=== PATIENT | male | born 1970 | race Caucasian/White ===

== ENCOUNTER 2021-05-25 15:06 | Inpatient (IN) | payer OTHER, BC, SELFPAY ==
[~2021-05-25] VITALS: Ht 170.2 cm; Wt 100.2 kg
[2021-05-25 15:13] VITALS: BP_SYST 137
[2021-05-25] MEDS ORDERED: IBUPROFEN 800 MG TABLET PO ONE (17:00)
[2021-05-25 18:38] LABS: CREATININE 0.7 mg/dL (0.55-1.30); POTASSIUM 3.9 mmol/L (3.5-5.1)
[2021-05-25 18:41] LABS: BASOPHILS % (AUTO) 0.4 % (0.0-2.0); EOSINOPHILS # (AUTO) 0.3 K/uL (0.0-0.4); EOSINOPHILS % (AUTO) 2.7 % (0.0-4.0); HEMATOCRIT 37.2 % (36-54); HEMOGLOBIN 11.9 g/dL (14.0-18.0); LYMPHOCYTES # (AUTO) 0.8 K/uL (1.0-5.5); LYMPHOCYTES % (AUTO) 6.5 % (20.5-51.5); MEAN CORPUSCULAR HEMOGLOBIN 26 pg (27-31); MEAN CORPUSCULAR HGB CONC 32 % (32-36); MEAN CORPUSCULAR VOLUME 81 fL (79.0-98.0); MONOCYTES # (AUTO) 1.1 K/uL (0.0-1.0); MONOCYTES % (AUTO) 8.4 % (1.7-9.3); NEUTROPHILS # (AUTO) 10.5 K/uL (1.8-7.7); PLATELET COUNT (AUTO) 426 K/uL (130-430); RED BLOOD CELL COUNT(AUTO) 4.62 MIL/uL (4.2-6.2); RED CELL DISTRIBUTION WIDTH 16.9 % (9.0-15.0); WHITE BLOOD COUNT (AUTO) 12.8 K/uL (4.8-10.8)
[2021-05-25 18:43] LABS: ALBUMIN 3.1 g/dL (3.4-4.8); TOTAL BILIRUBIN 0.4 mg/dL (0.0-1.0)
[2021-05-25] MEDS ORDERED: cefTRIAXone 1 GM IVPB PREMIX 50 ML IV ONE (19:15)
[2021-05-25] MEDS ORDERED: VANCOMYCIN HCL 1,000 MG in NS 250 ML IV ONE (19:15)
[2021-05-25 19:29] LABS: PROTHROMBIN TIME 10.9 SECS (9.5-12.5)
[2021-05-25] MEDS ORDERED: BACL10TA PO (19:34)
[2021-05-25] MEDS ORDERED: POTA20TA83 PO (19:34)
[2021-05-25] MEDS ORDERED: NEU300 PO (19:35)
[2021-05-25] MEDS ORDERED: HYDROcodone/ACETAMIN 5-325 MG TAB (NORCO/ VICODIN) PO PRN (20:15)
[2021-05-25] MEDS ORDERED: NACL 0.9% 1,000 ML IV ONE ×2 (20:15)
[2021-05-25 22:53] VITALS: BP_SYST 137
[2021-05-25 23:48] VITALS: BP_SYST 137
[2021-05-25] MEDS ORDERED: VANCOMYCIN HCL 1000 MG/VIAL IV ONE (23:57)
[2021-05-26] MEDS ORDERED: NALOXONE HCL 0.4 MG/ML AMP (NARCAN) IVP PRN
[2021-05-26] MEDS ORDERED: MORPHINE 2 MG/ML INJ. SYRINGE IVP PRN
[2021-05-26] MEDS ORDERED: ACETAMINOPHEN 500 MG TABLET PO PRN
[2021-05-26] MEDS ORDERED: IBUPROFEN 800 MG TABLET PO PRN
[2021-05-26 01:35] VITALS: BP_SYST 135
[2021-05-26 08:00] VITALS: BP_SYST 139
[2021-05-26 13:25] VITALS: BP_SYST 113
[2021-05-26] MEDS: VANCOMYCIN HCL 1,000 MG in NS 250 ML IV SCH ×2 (14:02→21:56)
[2021-05-26] MEDS ORDERED: BALSAM PERU/CASTOR OIL 60 GM OINT...G. TP ONE (14:30)
[2021-05-26] MEDS ORDERED: EMOLLIENT COMBINATION NO.73 78 GM CREAM..G. TP ONE (14:30)
[2021-05-26 16:21] VITALS: BP_SYST 135
[2021-05-26] MEDS: AMPICILLIN SODIUM 2 GM in NS 100 ML IV SCH (18:26)
[2021-05-26 20:05] VITALS: BP_SYST 155
[2021-05-26] MEDS: GABAPENTIN 300 MG CAPSULE PO SCH (20:41)
[2021-05-26] MEDS: BACLOFEN 10 MG TABLET PO SCH (20:42)
[2021-05-26] MEDS: ACETAMINOPHEN 500 MG TABLET PO PRN (20:42)
[2021-05-26] MEDS: EMOLLIENT COMBINATION NO.73 78 GM CREAM..G. TP SCH (20:42)
[2021-05-27] MEDS: AMPICILLIN SODIUM 2 GM in NS 100 ML IV SCH ×5 (00:19→23:54)
[2021-05-27 00:23] VITALS: BP_SYST 142
[2021-05-27] MEDS: VANCOMYCIN HCL 1,000 MG in NS 250 ML IV SCH ×3 (06:24→21:01)
[2021-05-27] MEDS: BACLOFEN 10 MG TABLET PO SCH ×2 (08:55→21:00)
[2021-05-27 09:56] VITALS: BP_SYST 133
[2021-05-27 09:57] VITALS: BP_SYST 133
[2021-05-27 10:30] LABS: BASOPHILS # (AUTO) 0.1 K/uL (0.0-0.2); BASOPHILS % (AUTO) 1.1 % (0.0-2.0); EOSINOPHILS # (AUTO) 0.6 K/uL (0.0-0.4); EOSINOPHILS % (AUTO) 6.5 % (0.0-4.0); HEMATOCRIT 34.7 % (36-54); LYMPHOCYTES # (AUTO) 1.2 K/uL (1.0-5.5); LYMPHOCYTES % (AUTO) 12.2 % (20.5-51.5); MEAN CORPUSCULAR HEMOGLOBIN 26 pg (27-31); MEAN CORPUSCULAR HGB CONC 32 % (32-36); MEAN CORPUSCULAR VOLUME 81 fL (79.0-98.0); MONOCYTES # (AUTO) 0.8 K/uL (0.0-1.0); MONOCYTES % (AUTO) 8.7 % (1.7-9.3); NEUTROPHILS # (AUTO) 6.8 K/uL (1.8-7.7); NEUTROPHILS % (AUTO) 71.5 % (40.0-70.0); PLATELET COUNT (AUTO) 435 K/uL (130-430); RED BLOOD CELL COUNT(AUTO) 4.31 MIL/uL (4.2-6.2); RED CELL DISTRIBUTION WIDTH 17.1 % (9.0-15.0); WHITE BLOOD COUNT (AUTO) 9.5 K/uL (4.8-10.8)
[2021-05-27 11:33] VITALS: BP_SYST 139
[2021-05-27] MEDS: BALSAM PERU/CASTOR OIL 60 GM OINT...G. TP SCH (14:33)
[2021-05-27] MEDS: EMOLLIENT COMBINATION NO.73 78 GM CREAM..G. TP SCH ×2 (14:33→21:01)
[2021-05-27] MEDS: ACETAMINOPHEN 500 MG TABLET PO PRN (19:36)
[2021-05-27 19:51] VITALS: BP_SYST 138
[2021-05-27] MEDS: GABAPENTIN 300 MG CAPSULE PO SCH (21:00)
[2021-05-28 01:12] VITALS: BP_SYST 125
[2021-05-28] MEDS: AMPICILLIN SODIUM 2 GM in NS 100 ML IV SCH ×3 (05:16→18:19)
[2021-05-28] MEDS: VANCOMYCIN HCL 1,000 MG in NS 250 ML IV SCH ×3 (06:29→22:08)
[2021-05-28 06:44] LABS: BASOPHILS % (AUTO) 0.5 % (0.0-2.0); EOSINOPHILS # (AUTO) 0.7 K/uL (0.0-0.4); EOSINOPHILS % (AUTO) 8.9 % (0.0-4.0); HEMOGLOBIN 11.3 g/dL (14.0-18.0); LYMPHOCYTES # (AUTO) 1.2 K/uL (1.0-5.5); LYMPHOCYTES % (AUTO) 15.1 % (20.5-51.5); MEAN CORPUSCULAR HEMOGLOBIN 25 pg (27-31); MEAN CORPUSCULAR HGB CONC 31 % (32-36); MEAN CORPUSCULAR VOLUME 81 fL (79.0-98.0); MONOCYTES # (AUTO) 0.7 K/uL (0.0-1.0); MONOCYTES % (AUTO) 9.4 % (1.7-9.3); NEUTROPHILS # (AUTO) 5.1 K/uL (1.8-7.7); NEUTROPHILS % (AUTO) 66.1 % (40.0-70.0); PLATELET COUNT (AUTO) 402 K/uL (130-430); RED BLOOD CELL COUNT(AUTO) 4.47 MIL/uL (4.2-6.2); RED CELL DISTRIBUTION WIDTH 16.8 % (9.0-15.0); WHITE BLOOD COUNT (AUTO) 7.6 K/uL (4.8-10.8)
[2021-05-28 08:00] VITALS: BP_SYST 140
[2021-05-28 09:54] VITALS: BP_SYST 125
[2021-05-28] MEDS ORDERED: TAMSULOSIN HCL 0.4 MG CAP PO ONE (10:15)
[2021-05-28] MEDS: EMOLLIENT COMBINATION NO.73 78 GM CREAM..G. TP SCH ×2 (10:27→22:09)
[2021-05-28] MEDS: BACLOFEN 10 MG TABLET PO SCH ×2 (10:27→20:19)
[2021-05-28] MEDS: BALSAM PERU/CASTOR OIL 60 GM OINT...G. TP SCH (10:28)
[2021-05-28] MEDS ORDERED: BACLOFEN 10 MG TABLET PO ONE (12:30)
[2021-05-28 12:34] VITALS: BP_SYST 146
[2021-05-28 16:48] VITALS: BP_SYST 141
[2021-05-28] MEDS: ACETAMINOPHEN 500 MG TABLET PO PRN (19:34)
[2021-05-28] MEDS: GABAPENTIN 300 MG CAPSULE PO SCH (20:19)
[2021-05-29] MEDS: AMPICILLIN SODIUM 2 GM in NS 100 ML IV SCH ×4 (00:28→17:56)
[2021-05-29 01:36] VITALS: BP_SYST 143
[2021-05-29] MEDS: VANCOMYCIN HCL 1,000 MG in NS 250 ML IV SCH ×3 (06:14→21:19)
[2021-05-29 08:15] VITALS: BP_SYST 125
[2021-05-29] MEDS: TAMSULOSIN HCL 0.4 MG CAP PO SCH (08:15)
[2021-05-29] MEDS: BACLOFEN 10 MG TABLET PO SCH ×2 (08:15→20:14)
[2021-05-29 12:31] VITALS: BP_SYST 126
[2021-05-29] MEDS: ACETAMINOPHEN 500 MG TABLET PO PRN ×2 (13:38→21:19)
[2021-05-29] MEDS: BALSAM PERU/CASTOR OIL 60 GM OINT...G. TP SCH (16:00)
[2021-05-29] MEDS: EMOLLIENT COMBINATION NO.73 78 GM CREAM..G. TP SCH ×2 (16:00→20:24)
[2021-05-29 16:45] VITALS: BP_SYST 136
[2021-05-29] MEDS ORDERED: MENTHOL/ZINC OXIDE 113 GM OINT. TP PRN (17:15)
[2021-05-29 19:00] VITALS: BP_SYST 135
[2021-05-29 20:00] VITALS: BP_SYST 160
[2021-05-29] MEDS: GABAPENTIN 300 MG CAPSULE PO SCH (20:14)
[2021-05-30] MEDS: AMPICILLIN SODIUM 2 GM in NS 100 ML IV SCH ×4 (01:10→17:51)
[2021-05-30] MEDS: VANCOMYCIN HCL 1,000 MG in NS 250 ML IV SCH ×3 (06:21→22:16)
[2021-05-30 07:45] VITALS: BP_SYST 131
[2021-05-30 07:56] LABS: ALANINE AMINOTRANSFERASE 17 U/L (12-78); ALBUMIN 2.2 g/dL (3.4-4.8); ANION GAP 7 (5-15); ASPARTATE AMINOTRANSFERASE 18 U/L (10-37); CHLORIDE 104 mmol/L (98-107); CREATININE 0.49 mg/dL (0.55-1.30); GLUCOSE 93 mg/dL (70-99); SODIUM SERUM 140 mmol/L (136-145); TOTAL BILIRUBIN < 0.1 mg/dL (0.0-1.0); UREA NITROGEN, BLOOD 10 mg/dL (8-21)
[2021-05-30 08:12] LABS: GFR AFRICAN AMERICAN 230 mL/min (>90)
[2021-05-30] MEDS: TAMSULOSIN HCL 0.4 MG CAP PO SCH (09:52)
[2021-05-30] MEDS: EMOLLIENT COMBINATION NO.73 78 GM CREAM..G. TP SCH ×2 (09:53→20:38)
[2021-05-30] MEDS: BACLOFEN 10 MG TABLET PO SCH ×2 (09:53→20:38)
[2021-05-30] MEDS: ACETAMINOPHEN 500 MG TABLET PO PRN (12:03)
[2021-05-30 13:00] VITALS: BP_SYST 142
[2021-05-30] MEDS: BALSAM PERU/CASTOR OIL 60 GM OINT...G. TP SCH (15:24)
[2021-05-30 16:37] VITALS: BP_SYST 135
[2021-05-30] MEDS: GABAPENTIN 300 MG CAPSULE PO SCH (20:37)
[2021-05-30] MEDS: tiZANidine HCL 4 MG TABLET PO SCH (20:37)
[2021-05-30 21:00] VITALS: BP_SYST 137
[2021-05-31 02:00] VITALS: BP_SYST 142
[2021-05-31] MEDS: AMPICILLIN SODIUM 2 GM in NS 100 ML IV SCH ×4 (02:42→18:06)
[2021-05-31] MEDS: VANCOMYCIN HCL 1,000 MG in NS 250 ML IV SCH ×3 (05:09→22:25)
[2021-05-31 08:00] VITALS: BP_SYST 132
[2021-05-31] MEDS: EMOLLIENT COMBINATION NO.73 78 GM CREAM..G. TP SCH ×2 (09:53→21:17)
[2021-05-31] MEDS: BACLOFEN 10 MG TABLET PO SCH ×2 (09:53→21:05)
[2021-05-31] MEDS: tiZANidine HCL 4 MG TABLET PO SCH ×3 (09:53→21:15)
[2021-05-31] MEDS: TAMSULOSIN HCL 0.4 MG CAP PO SCH (09:53)
[2021-05-31] MEDS: BALSAM PERU/CASTOR OIL 60 GM OINT...G. TP SCH (09:54)
[2021-05-31 12:00] VITALS: BP_SYST 116
[2021-05-31 16:00] VITALS: BP_SYST 132
[2021-05-31 20:39] VITALS: BP_SYST 106
[2021-05-31] MEDS: GABAPENTIN 300 MG CAPSULE PO SCH (21:05)
[2021-06-01 00:07] VITALS: BP_SYST 91
[2021-06-01] MEDS: AMPICILLIN SODIUM 2 GM in NS 100 ML IV SCH ×2 (03:04→05:48)
[2021-06-01] MEDS: VANCOMYCIN HCL 1,000 MG in NS 250 ML IV SCH (05:40)
[2021-06-01 05:48] VITALS: BP_SYST 119
[2021-06-01] MEDS: tiZANidine HCL 4 MG TABLET PO SCH ×3 (09:11→21:44)
[2021-06-01] MEDS: EMOLLIENT COMBINATION NO.73 78 GM CREAM..G. TP SCH (09:11)
[2021-06-01] MEDS: BACLOFEN 10 MG TABLET PO SCH ×2 (09:11→21:35)
[2021-06-01] MEDS: TAMSULOSIN HCL 0.4 MG CAP PO SCH (09:11)
[2021-06-01] MEDS: BALSAM PERU/CASTOR OIL 60 GM OINT...G. TP SCH (09:11)
[2021-06-01 11:40] VITALS: BP_SYST 129
[2021-06-01 15:11] VITALS: BP_SYST 135
[2021-06-01] MEDS: ACETAMINOPHEN 500 MG TABLET PO PRN (15:11)
[2021-06-01] MEDS: GABAPENTIN 300 MG CAPSULE PO SCH (21:35)
[2021-06-01] MEDS: DOXYCYCLINE HYCLATE 100 MG CAPSULE PO SCH (21:35)
[2021-06-02 00:43] VITALS: BP_SYST 94
[2021-06-02 08:00] VITALS: BP_SYST 126
[2021-06-02] MEDS: TAMSULOSIN HCL 0.4 MG CAP PO SCH (09:12)
[2021-06-02] MEDS: DOXYCYCLINE HYCLATE 100 MG CAPSULE PO SCH ×2 (09:12→21:32)
[2021-06-02] MEDS: EMOLLIENT COMBINATION NO.73 78 GM CREAM..G. TP SCH (09:13)
[2021-06-02] MEDS: tiZANidine HCL 4 MG TABLET PO SCH ×3 (09:13→21:32)
[2021-06-02] MEDS: BALSAM PERU/CASTOR OIL 60 GM OINT...G. TP SCH (09:13)
[2021-06-02] MEDS: BACLOFEN 10 MG TABLET PO SCH ×2 (09:14→21:32)
[2021-06-02 11:22] VITALS: BP_SYST 133
[2021-06-02 15:21] VITALS: BP_SYST 112
[2021-06-02] MEDS: GABAPENTIN 300 MG CAPSULE PO SCH (21:32)
[2021-06-03 01:23] VITALS: BP_SYST 102
[2021-06-03 08:22] VITALS: BP_SYST 102
[2021-06-03] MEDS: DOXYCYCLINE HYCLATE 100 MG CAPSULE PO SCH (09:00)
[2021-06-03] MEDS: BACLOFEN 10 MG TABLET PO SCH (09:00)
[2021-06-03] MEDS: BALSAM PERU/CASTOR OIL 60 GM OINT...G. TP SCH (09:00)
[2021-06-03] MEDS: TAMSULOSIN HCL 0.4 MG CAP PO SCH (09:00)
[2021-06-03] MEDS: tiZANidine HCL 4 MG TABLET PO SCH (09:00)
[2021-06-03 10:04] LABS: BASOPHILS % (AUTO) 0.4 % (0.0-2.0); EOSINOPHILS # (AUTO) 0.5 K/uL (0.0-0.4); EOSINOPHILS % (AUTO) 5.8 % (0.0-4.0); HEMATOCRIT 34.3 % (36-54); HEMOGLOBIN 11.1 g/dL (14.0-18.0); LYMPHOCYTES % (AUTO) 10.8 % (20.5-51.5); MEAN CORPUSCULAR HEMOGLOBIN 26 pg (27-31); MEAN CORPUSCULAR HGB CONC 32 % (32-36); MEAN CORPUSCULAR VOLUME 80 fL (79.0-98.0); MONOCYTES # (AUTO) 0.9 K/uL (0.0-1.0); MONOCYTES % (AUTO) 10.2 % (1.7-9.3); NEUTROPHILS # (AUTO) 6.6 K/uL (1.8-7.7); NEUTROPHILS % (AUTO) 72.8 % (40.0-70.0); PLATELET COUNT (AUTO) 411 K/uL (130-430); RED CELL DISTRIBUTION WIDTH 17.6 % (9.0-15.0)
[2021-06-03 10:21] LABS: ALBUMIN 2.5 g/dL (3.4-4.8); CALCIUM 8.6 mg/dL (8.4-11.0); CREATININE 0.57 mg/dL (0.55-1.30); TOTAL BILIRUBIN 0.3 mg/dL (0.0-1.0)
[2021-06-03 11:25] VITALS: BP_SYST 112
[2021-06-03 15:09] VITALS: BP_SYST 117
[2021-06-03 15:40] VITALS: BP_SYST 112
== END 2021-06-03 17:20 | DRG 603 ==
LOC: SED 15:06 → SMU 20:07
PROVIDERS: ADMIT Internal Medicine Hospice and Palliative Medicine; ATTEND Internal Medicine Hospice and Palliative Medicine
PROC: 5A09457 Assistance with Respiratory Ventilation, 24-96 Consecutive Hours, Continuous Positive Airway Pressure (ICD-10-PCS; principal; 2021-05-29)
DX: L03.116 Cellulitis of left lower limb (principal); E44.0 Moderate protein-calorie malnutrition; G61.0 Guillain-Barre syndrome; N20.2 Calculus of kidney with calculus of ureter; E66.9 Obesity, unspecified; G47.33 Obstructive sleep apnea (adult) (pediatric); I10 Essential (primary) hypertension; I87.2 Venous insufficiency (chronic) (peripheral); Z20.822 Contact with and (suspected) exposure to COVID-19; Z96.642 Presence of left artificial hip joint; R33.9 Retention of urine, unspecified; G56.02 Carpal tunnel syndrome, left upper limb; M62.838 Other muscle spasm; I89.0 Lymphedema, not elsewhere classified; M54.50 Low back pain, unspecified; G89.29 Other chronic pain; Z99.3 Dependence on wheelchair; Z88.8 Allergy status to other drugs, medicaments and biological substances; Z88.7 Allergy status to serum and vaccine; Z79.899 Other long term (current) drug therapy; Z68.34 Body mass index [BMI] 34.0-34.9, adult
CPT/HCPCS: 36415; 72110; 73502; 76376; 80053; 80202; 82607; 83605; 84443; 85025; 85610-TC; 85651-TC; 87040-TC; 93923; 94660; 94760; 96365; 97110-GP; 97112-GP; 97530-GP; 99285; J0290; J0696; J3370; J7050; Q9967

== ENCOUNTER 2022-07-09 22:01 | Inpatient (IN) | payer BC, OTHER ==
[~2022-07-09] VITALS: Ht 170.2 cm; Wt 114.8 kg
[2022-07-09 22:12] VITALS: BP_SYST 179
[2022-07-09] MEDS ORDERED: NACL 0.9% 1,000 ML IV ONE (23:45)
[2022-07-10 00:36] LABS: CALCIUM 9.4 mg/dL (8.4-11.0); CREATININE 0.49 mg/dL (0.55-1.30)
[2022-07-10 00:42] LABS: ALBUMIN 2.8 g/dL (3.4-4.8); PHOSPHORUS 3.9 mg/dL (2.7-4.5); TOTAL BILIRUBIN 0.3 mg/dL (0.0-1.0)
[2022-07-10] MEDS ORDERED: GABAPENTIN 100 MG CAPSULE PO ONE (01:00)
[2022-07-10] MEDS ORDERED: ACETAMINOPHEN 500 MG TABLET PO ONE (01:00)
[2022-07-10] MEDS ORDERED: BACLOFEN 10 MG TABLET PO ONE ×2 (01:00→10:00)
[2022-07-10] MEDS ORDERED: BACLOFEN 10 MG TABLET ONE (01:26)
[2022-07-10 01:38] LABS: BASOPHILS # (AUTO) 0.1 K/uL (0.0-0.2); BASOPHILS % (AUTO) 0.3 % (0.0-2.0); EOSINOPHILS # (AUTO) 0.4 K/uL (0.0-0.4); EOSINOPHILS % (AUTO) 2.5 % (0.0-4.0); HEMATOCRIT 36.3 % (36-54); HEMOGLOBIN 11.1 g/dL (14.0-18.0); LYMPHOCYTES # (AUTO) 1.3 K/uL (1.0-5.5); LYMPHOCYTES % (AUTO) 7.9 % (20.5-51.5); MEAN CORPUSCULAR HEMOGLOBIN 25 pg (27-31); MEAN CORPUSCULAR HGB CONC 31 % (32-36); MEAN CORPUSCULAR VOLUME 82 fL (79.0-98.0); MONOCYTES # (AUTO) 1.5 K/uL (0.0-1.0); MONOCYTES % (AUTO) 9.6 % (1.7-9.3); NEUTROPHILS # (AUTO) 12.6 K/uL (1.8-7.7); NEUTROPHILS % (AUTO) 79.7 % (40.0-70.0); PLATELET COUNT (AUTO) 424 K/uL (130-430); RED BLOOD CELL COUNT(AUTO) 4.42 MIL/uL (4.2-6.2); RED CELL DISTRIBUTION WIDTH 18.5 % (9.0-15.0); WHITE BLOOD COUNT (AUTO) 15.8 K/uL (4.8-10.8)
[2022-07-10 03:05] LABS: BILIRUBIN,URINE NEGATIVE (NEGATIVE); BLOOD, URINE 3+ (NEGATIVE); CLARITY/URINE CLEAR (CLEAR); COLOR,URINE YELLOW (YELLOW); GLUCOSE,URINE NEGATIVE (NEGATIVE); KETONES,URINE NEGATIVE (NEGATIVE); LEUKOCYTE ESTERASE ,URINE 2+ (NEGATIVE); NITRITE, URINE POSITIVE (NEGATIVE); PROTEIN URINE 1+ (NEGATIVE)
[2022-07-10 03:20] LABS: BACTERIA,URINE MODERATE /HPF (None Seen); MUCUS,URINE 2+ /LPF (None Seen); RBC,URINE 80-100 /HPF (0-3); WBC,URINE >100 /HPF (0-3)
[2022-07-10] MEDS ORDERED: cefTRIAXone 1 GM in D5W 50 ML IV ONE (03:30)
--- NOTE | 2022-07-10 04:05 | NUR ---
Per Dr. Rosa's request, called the on-call for admission orders.
[2022-07-10] MEDS ORDERED: NACL 0.9% 1,000 ML IV SCH (04:30)
[2022-07-10] MEDS ORDERED: cefTRIAXone 1 GM IVPB PREMIX 50 ML IV ONE (05:17)
--- NOTE | 2022-07-10 07:45 | NUR ---
Recieved report from ARCELIA Mojica. Pt aaox4, 24 gauge left hand positional to flow. No infilltration noted. bilateral edamateous lower extremities with pink and dry flaky skin. Pt lower extremities sensitive to touch, pt states pain radiates bilateral calves to lower back pain 6/10. Cason bag at bedside with louann colored urine 300ml with 16 indian indwelling cathetar. Pt notes suffers from scoliosis with general weakness. Respiratory therapist notes pt tolerated Bipap well. pt nasal canula oxygen 2 liters via nasal canula.
--- NOTE | 2022-07-10 08:08 | NUR ---
rt notes 0808 Offloaded pt from bipap, pt on 2LNC right now. pt saturating 95%. no resp distress noted. will cont to monitor pt. will notify RN.
[2022-07-10 08:51] VITALS: BP_SYST 135
--- NOTE | 2022-07-10 09:06 | NUR ---
Pt served regular diet per MD order. Pt complains of lower back pain radiating from bilateral extremities. RN Students assist with dangling and stretching a repositioned pt to bed side with assist. Pt states relief from repositioning.
[2022-07-10] MEDS ORDERED: ACETAMINOPHEN 500 MG TABLET ONE (09:58)
--- NOTE | 2022-07-10 11:00 | NUR ---
Pt saturation 88% on 2 liters via nasal canula.
--- NOTE | 2022-07-10 11:01 | NUR ---
Respiratory therapist contacted to assess pt; bipap therapy provided by RT Guy
--- NOTE | 2022-07-10 11:21 | NUR ---
Pt medicated per MD order to relieve back pain; further, pt transferred to hospital bed for comfort measure relief.
[2022-07-10] MEDS: ACETAMINOPHEN 500 MG TABLET PO PRN ×2 (11:37→22:00)
--- NOTE | 2022-07-10 14:04 | NUR ---
rt notes 1404 pt placed on bipap back due to desaturation episodes. pt saturating 98% on bipap. will cont to monitor pt.
--- NOTE | 2022-07-10 18:26 | NUR ---
rt notes 1826 offloaded pt from bipap, pt on 5LNC- pt saturating 97%. pt requested to be off of bipap. will cont to monitor pt.
[2022-07-10] MEDS ORDERED: PIPERACILLIN/TAZO 3.375/DEX-IS 50 ML IV SCH (19:00)
--- NOTE | 2022-07-10 20:38 | NUR ---
Pt is bedside with pt. pt is aaox4, on bipap, denies pain at this time.
--- NOTE | 2022-07-10 21:00 | NUR ---
Patient will be admitted to care of MD Zavaleta. Admitted to Tele unit. Complete and up to date summary report printed. SBAR report given to ARCELIA Dunham bedside with opportunity for questions.
[2022-07-10] MEDS: BACLOFEN 10 MG TABLET PO SCH (21:55)
--- NOTE | 2022-07-10 22:38 | NUR ---
Admit bed requested Patient will be admitted to care of . Admitted to tele unit. Diagnosis UTI with complications Inpatient (Yes or No) yes Observation (Yes or No) n Orientation concerns or request close to nursing station (Yes or No) n Covid Status neg On vent or bipap yes- pt on bipap Isolation requirements no Needs a sitter no From Home (Yes or if No enter name of facility) home Requires Dialysis (Yes or No) no Med Rec Completed (Yes of No) yes
[2022-07-10] MEDS ORDERED: ACETAMINOPHEN 500 MG TABLET PO PRN (22:45)
--- NOTE | 2022-07-10 22:45 | NUR ---
Patient will be admitted to care of [facility]. Admitted to tele unit. Complete and up to date summary report printed. SBAR report given to Roly PANIAGUA at bedside with opportunity for questions.
[2022-07-10] MEDS: NACL 0.9% 1,000 ML IV SCH (23:35)
[2022-07-11] VITALS: BP_SYST 140
--- NOTE | 2022-07-11 02:46 | NUR ---
CONSULTATION PAGED/CALLED Reason for Consultation: RESP FAILURE HISTORY Person Who was Notified:SHELDON Consulting Physician: JAMAAL Security Delivery Specialist Specialty: Ordering Physician: LANA
[2022-07-11 03:22] VITALS: BP_SYST 144
--- NOTE | 2022-07-11 06:49 | NUR ---
rt notes 0649 offloaded pt from bipap, pt on 4LNC right now. Pt saturating 95%. no distress noted. will cont to monitor pt.
--- NOTE | 2022-07-11 07:30 | NUR ---
OPENING NOTE Received report from ARCELIA Mi. Upon entering room, patient is awake, alert, and oriented in a sitting position in bed. He reports back pain at this time 12/04. IV site intact. Cason intact. Patient is on 5L NC at this time. Respirations appear labored at this time.
[2022-07-11 08:25] VITALS: BP_SYST 145
[2022-07-11] MEDS ORDERED: BACLOFEN 10 MG TABLET PO SCH ×2 (09:00→21:00)
[2022-07-11] MEDS: BACLOFEN 10 MG TABLET PO SCH ×3 (09:03→22:09)
[2022-07-11] MEDS: ACETAMINOPHEN 500 MG TABLET PO PRN (09:04)
--- NOTE | 2022-07-11 09:15 | NUR ---
TYLENOL GIVEN Patient denies acetaminophen allergy. This was also corroborated by rn night RN Shmuel. Acetaminophen removed from allergy list.
--- NOTE | 2022-07-11 09:17 | NUR ---
HYDROCODONE ALLERGY Patient states respiratory failure when hydrocodone given. However, patient states no reaction when taking acetaminophen only.
--- NOTE | 2022-07-11 09:30 | NUR ---
rt notes 0930 placed pt back on bipap, pt requested to be back on bipap due to sob and pt falling asleep (cirilo). pt saturating 96%. no distress noted. notified pipe and boiler covers supervisor Zeny.
--- NOTE | 2022-07-11 11:00 | NUR ---
FAMILY AT BEDSIDE at bedside at this time. She is very concerned about patient's conditions. She would like to speak to MD when available.
[2022-07-11 11:31] VITALS: BP_SYST 137
--- NOTE | 2022-07-11 11:51 | NUR ---
MD ROUNDS Dr. Bueno at bedside. Speaking to Denisa and patient.
--- NOTE | 2022-07-11 12:17 | NUR ---
RT NOTES 1217 PT OFF BIPAP, MD QURESHI ORDERED ABG ON RA ON PT. WILL DRAW ABG IN 15-30 MINS ON RA. EXPLAINED PROCEDURE TO PT AND . WILL CONT TO MONITOR PT. ARCELIA RIGGINS MADE AWARE.
--- NOTE | 2022-07-11 13:04 | NUR ---
rt notes 1304 Pt back on bipap after ABG draw. pt having WOB, saturating low 70s. will cont to monitor pt.
[2022-07-11] MEDS: traMADol HCL HCL 50 MG TABLET (ULTRAM) PO PRN ×2 (13:11→22:09)
[2022-07-11] MEDS: PIPERACILLIN/TAZO 3.375/DEX-IS 50 ML IV SCH ×3 (13:29→23:22)
[2022-07-11] MEDS: NACL 0.9% 1,000 ML IV SCH ×2 (13:29→18:45)
[2022-07-11 16:22] VITALS: BP_SYST 139
--- NOTE | 2022-07-11 18:55 | NUR ---
CLOSING NOTE Patient in bed sleeping at this time. O2 per bipap ongoing. No s/s of pain at this time. Patient checked for cleanliness. Call light within reach. Safety precautions observed.
[2022-07-11 20:00] VITALS: BP_SYST 156
[2022-07-12] VITALS (15 sets, daily range): BP systolic 94–153
[2022-07-12] MEDS: NACL 0.9% 1,000 ML IV SCH ×2 (05:22→11:41)
[2022-07-12] MEDS: PIPERACILLIN/TAZO 3.375/DEX-IS 50 ML IV SCH ×3 (05:30→23:44)
--- NOTE | 2022-07-12 07:30 | NUR ---
RN OPENING NOTE REPORT WAS ENDORSED BY NIGHT NURSE. RT IS AT BEDSIDE. REMOVED BIPAP AND PLACE ON NC 5L SPO2 IS 97%. PATIENT IS BEING FED BREAKFAST. EDUCATED CARGO SERVICE SUPERVISOR LIGHT FOR ASSISTANCE. CALL LIGHT IS WITH HIM. NO OTHER NEEDS AT THIS TIME.
[2022-07-12 07:33] LABS: BASOPHILS % (AUTO) 0.3 % (0.0-2.0); EOSINOPHILS # (AUTO) 0.2 K/uL (0.0-0.4); EOSINOPHILS % (AUTO) 1.8 % (0.0-4.0); HEMATOCRIT 33.3 % (36-54); HEMOGLOBIN 10.3 g/dL (14.0-18.0); LYMPHOCYTES # (AUTO) 0.9 K/uL (1.0-5.5); LYMPHOCYTES % (AUTO) 7.8 % (20.5-51.5); MEAN CORPUSCULAR HEMOGLOBIN 26 pg (27-31); MEAN CORPUSCULAR HGB CONC 31 % (32-36); MEAN CORPUSCULAR VOLUME 83 fL (79.0-98.0); MONOCYTES # (AUTO) 0.9 K/uL (0.0-1.0); MONOCYTES % (AUTO) 7.3 % (1.7-9.3); NEUTROPHILS # (AUTO) 9.8 K/uL (1.8-7.7); NEUTROPHILS % (AUTO) 82.8 % (40.0-70.0); PLATELET COUNT (AUTO) 387 K/uL (130-430); RED BLOOD CELL COUNT(AUTO) 4.01 MIL/uL (4.2-6.2); RED CELL DISTRIBUTION WIDTH 18.2 % (9.0-15.0); WHITE BLOOD COUNT (AUTO) 11.8 K/uL (4.8-10.8)
--- NOTE | 2022-07-12 07:45 | NUR ---
RT NOTE: 0745 Patient taken off BiPAP for breakfast, placed on 4LPM nasal cannula. SpO2 96-98%. BiPAP on standby. Addendum: 07/12/22 at 0755 by Ludy Blanca RT Amended: Links added.
[2022-07-12 07:55] LABS: CALCIUM 8.9 mg/dL (8.4-11.0); CREATININE 0.32 mg/dL (0.55-1.30)
[2022-07-12] MEDS: BACLOFEN 10 MG TABLET PO SCH ×2 (09:01→15:00)
[2022-07-12] MEDS: traMADol HCL HCL 50 MG TABLET (ULTRAM) PO PRN (09:02)
--- NOTE | 2022-07-12 09:06 | NUR ---
MEDICATION/PAIN MEDICATION PATIENTS SCHEDULED MEDICATION GIVEN WELL PAIN MEDICATION PATIENT REQUESTED.PATIENT KEEPS REMOVING OXYGEN EDUCATED TO KEEP ON AND BREATH THROUGH HIS NOSE PATIENT VERBALIZED UNDER STANDING. PATIENT ALSO EDUCATED CHEMIST BIOLOGICAL LIGHT FOR ASSISTANCE.CALL LIGHT IS WITH HIM.
[2022-07-12] MEDS ORDERED: MELOXICAM 7.5 MG TABLET PO ONE (11:30)
--- NOTE | 2022-07-12 11:43 | NUR ---
at nurses station orders were obtained.patient is yelling a cursing.i asked where his pain is seems confused.says he knows his name and but wont verbally tell me. patients medication given as ordered. educated die cutter diamond light for assistance call light is with him
[2022-07-12] MEDS ORDERED: KETOROLAC TROMETHAMINE 30 MG VIAL IVP ONE (11:45)
--- NOTE | 2022-07-12 13:15 | NUR ---
per put back on bi pap patient's spouse is at bedside.educated to use call light for assistance .patient also gave schedule medication. no other needs at this time. Addendum: 07/12/22 at 1741 by Zita Lee RN SUGGESTED ABG PER REQUEST MD DOES NOT WANT ONE AT THIS TIME. PATIENT IS NOT ABLE TO RECOGNIZE AND STATES HE WAS NOT LIKE THIS YESTERDAY
--- NOTE | 2022-07-12 14:00 | NUR ---
WOUND EVALUATION: Wound Consult received from Dr. Bueno. Thank you, Dr. Bueno, for the consult. Patient received in a [place] Bed with an Atmos-Air 9000 mattress, awake, lethargic, on BiPAP. Patient is unable to turn in bed independently. Contreras Score is a 13. Past Medical History: Limited Lung Capacity, bedridden, ambulates minimally with walker (mostly in a wheelchair), recent vertebral surgery done, incapacitated, incontinent to urine and has a Cason catheter, Spinal surgery with spinal tamie to stabilize Scoliosis. Recent Labs: WBC 11.8, RBC 4.01, hemoglobin 10.3, hematocrit 33.3, BUN 10, creatinine 0.32, glucose 115, BNP 105, albumin 2.8. Microbiology: Blood culture results x2 in progress. Urine culture results negative (possible contamination). Second urine culture results in progress. Intrinsic factors that delay wound healing: Limited Lung Capacity, Hyperglycemia, Hypoalbuminemia. Extrinsic factors that delay wound healing: Decreased mobility, bedbound. Per assessment by Dr. Bueno: UTI, Sacral Ulcer infection, Lower Extremity Cellulitis, Limited Lung Capacity needing BiPAP intermittently. Wound Assessment: 1. Sacral-Coccygeal area: Stage IV pressure ulcer, present on admission. Wound bed has 95% yellow slough, 5% red tissue. No odor, scant red drainage. Rita-wound white. Hard feel present at bottom of wound. Undermining present from 84 o'clock (0.5 cm at 9 o'clock; 1.3 cm at 12 o'clock; 1.2 cm at 3 o'clock;). Wound measures 2.0 cm x 2.0 cm x 3.7 cm. Left buttock has circular red nonblanchable area, present admission (we will continue to monitor). Recommend: Cleanse wound with normal saline. Apply moisture barrier cream to rita-wound. Apply Venelex ointment to wound bed. Pack wound with 1/2 inch iodoform packing strip. Cover with Sacral foam dressing. Perform wound care daily, and as needed for dressing soiling or dislodgement. 2. Left Inguinal area: Intertrigo with erythema from IAD, present on admission. 3. Right Inguinal area: Intertrigo with erythema from IAD, present on admission. 4. Scrotum: Erythema from IAD, present on admission Recommend: Cleanse involved areas with mild soap and water. Gently pat dry. Place Interdry AG cloth underneath scrotum apply antifungal powder to bilateral inguinal areas and scrotal area. Dust off excess powder. Pull scrotum up off of bed by pulling Interdry Ag cloth in between bilateral thighs. Perform site care twice daily. Change Interdry cloth every 5 days and as needed for cloth soiling or dislodgment. 5. Abdominal fold: Intertrigo with erythema from IAD, present on admission. Recommend: Cleanse involved areas with mild soap and water. Pat dry. Apply antifungal powder to involved areas. Dust off excess powder. Place Interdry AG cloth in between abdominal fold area. Perform site care twice daily. Change Interdry cloth every 5 days and as needed for cloth soiling or dislodgment. 6. Left Lower Extremity: Mild erythema with dry scaly skin, present on admission. 7. Right Lower Extremity: Moderate erythema with dry scaly skin, present on admission. Skin is warm to the touch. Recommend: Cleanse bilateral lower extremities with mild soap and water. Gently pat dry. Apply Eucerin cream to bilateral lower extremities. Perform site care twice daily. Cut calcium alginate dressings to size and place in between toes. Replace alginate dressing every 5 days and as needed for dressing soiling or dislodgment. Also recommend: Reposition patient side to side only every 2 hours with pillow support and off-load pressure areas with pillows for pressure re-distribution. Offload, elevate and float bilateral heels with pillows. Perform skin care and monitor skin integrity Q shift. Use moisture barrier cream on buttocks and other moisture susceptible areas QID and as needed for soiling. Place patient on a P500 low air-loss mattress.
--- NOTE | 2022-07-12 16:13 | NUR ---
patient is unable to swallow at this time. Addendum: 07/12/22 at 1742 by Zita Lee RN DR. QUERSHI AT [employer] [facility] WENT INTO TO SEE PATIENT ORDERS GIVEN AND IMPUTED
[2022-07-12] MEDS ORDERED: acetaZOLAMIDE 250 MG TABLET (DIAMOX) PO ONE (17:00)
--- NOTE | 2022-07-12 17:05 | NUR ---
spoke with dr. burt wants to transfer to icu for intubation. Addendum: 07/12/22 at 1956 by Zita Lee RN informed of abg results. also informed dr. boregon of abg results at nurses [facility].
[2022-07-12] MEDS ORDERED: PROPOFOL DRIP 100 ML IV ONE (17:11)
--- NOTE | 2022-07-12 17:24 | NUR ---
PATIENT TRANSFERRED TO ICU REPORT WAS ENDORSED TO RN. PATIENTS SPOUSE IS AWARE IN ICU WAITING ROOM. PATIENTS FAMILY HAS ALL OF THE BELONGINGS
--- NOTE | 2022-07-12 17:35 | NUR ---
RT NOTES ASSISTED DR FIGUEREDO WITH INTUBATION. 7.5 ETT INSERTED AND SECURED AT 24CM LIP LINE. COLOR CHANGE DETECTED ON CO2 DETECTOR. GOOD EQUAL BILATERAL CHEST RISE AND B/S AUSCULTATED. SPUTUM COLLECTED. CXRAY TO BE OBTAINED. ABG TO BE DONE POST 1 HR OF INTUBATION. PLACED ON VENT AC 20 VT 500 PEEP 5 FIO2 100% Addendum: 07/12/22 at 1805 by Braxton Smith RT Amended: Links added.
[2022-07-12] MEDS: PROPOFOL DRIP 100 ML IV PRN ×2 (18:25→21:39)
[2022-07-12] MEDS: FENTANYL CITRATE-0.9 % NACL/PF 100 ML IV PRN (18:27)
--- NOTE | 2022-07-12 18:30 | NUR ---
FEEDING TUBE SAUNDRA GREEN INSERTED ORALLY, CHECK PLACEMENT VIA AUSCULTATION, WAITING FOR STACKER ATTENDANT.
--- NOTE | 2022-07-12 18:43 | NUR ---
XRAY CHEST XRAY COMPLETED.
--- NOTE | 2022-07-12 18:50 | NUR ---
FAMILY SENT JAMAL INTO THE PT'S ROOM. UPDATED HER ON HIS STATUS.
[2022-07-12] MEDS: LANOLIN ALCOHOL/MO/W.PET/CERES 57 GM CREAM..G. TP SCH (21:40)
[2022-07-12] MEDS: APIXABAN 2.5 MG TABLET PO SCH (21:41)
[2022-07-12] MEDS: acetaZOLAMIDE 250 MG TABLET (DIAMOX) PO SCH (21:42)
[2022-07-12] MEDS: NYSTATIN 15 GM TOPICAL POWDER TP SCH (21:44)
[2022-07-12] MEDS ORDERED: PIPERACILLIN/TAZOBACTAM 3.375 GM/VIAL (ZOSYN) IV ONE (23:00)
[2022-07-13] VITALS (33 sets, daily range): BP systolic 100–135
--- NOTE | 2022-07-13 | NUR ---
RN NOTES VITALS STABLE, ON SAME VENT SETTING. PATIENT MADE COMFORTABLE.
[2022-07-13] MEDS: PROPOFOL DRIP 100 ML IV PRN ×3 (01:27→18:20)
[2022-07-13 06:13] LABS: BASOPHILS # (AUTO) 0.1 K/uL (0.0-0.2); BASOPHILS % (AUTO) 0.4 % (0.0-2.0); EOSINOPHILS # (AUTO) 0.3 K/uL (0.0-0.4); EOSINOPHILS % (AUTO) 2.2 % (0.0-4.0); HEMATOCRIT 33.4 % (36-54); HEMOGLOBIN 10.5 g/dL (14.0-18.0); LYMPHOCYTES % (AUTO) 13.2 % (20.5-51.5); MEAN CORPUSCULAR HEMOGLOBIN 25 pg (27-31); MEAN CORPUSCULAR HGB CONC 31 % (32-36); MEAN CORPUSCULAR VOLUME 81 fL (79.0-98.0); MONOCYTES # (AUTO) 1.1 K/uL (0.0-1.0); MONOCYTES % (AUTO) 7.2 % (1.7-9.3); NEUTROPHILS # (AUTO) 11.7 K/uL (1.8-7.7); PLATELET COUNT (AUTO) 454 K/uL (130-430); RED BLOOD CELL COUNT(AUTO) 4.11 MIL/uL (4.2-6.2); WHITE BLOOD COUNT (AUTO) 15.1 K/uL (4.8-10.8)
[2022-07-13] MEDS: PIPERACILLIN/TAZO 3.375/DEX-IS 50 ML IV SCH ×3 (06:13→18:13)
--- NOTE | 2022-07-13 07:00 | NUR ---
Open notes: received report from the night court magistrate Brea PANIAGUA. 52-year-old man, history of transverse myelitis who is bedbound/wheelchair. Recurrent UTI indwelling Cason catheter who was brought to the hospital due to possible UTI worsening respiratory status worsening confusion. PT intubated on 07-12-22, AC18, V500. 40%, PEEP 5. LIJ Triple Lumen, Diprivan 35mcg/kg/min, Fentanyl 25mcg/kg/min. OGT Vital at 10ml/hr. Cason catheter in place. Bilateral soft wrist restraints. Bilateral lower extremities edema with scaly cellulitis appearance. Family will be updated.
--- NOTE | 2022-07-13 08:15 | NUR ---
Dr. Nava at bed side, pt to be on cpap after CT-Scan.
[2022-07-13] MEDS: acetaZOLAMIDE 250 MG TABLET (DIAMOX) PO SCH ×2 (08:55→20:54)
[2022-07-13] MEDS: APIXABAN 2.5 MG TABLET PO SCH ×2 (08:55→20:52)
[2022-07-13] MEDS: LANOLIN ALCOHOL/MO/W.PET/CERES 57 GM CREAM..G. TP SCH ×2 (08:58→20:54)
[2022-07-13] MEDS: BALSAM PERU/CASTOR OIL 56.7 GM OINT...G. TP SCH (08:59)
[2022-07-13] MEDS: NYSTATIN 15 GM TOPICAL POWDER TP SCH ×2 (08:59→20:54)
[2022-07-13] MEDS ORDERED: MELOXICAM 7.5 MG TABLET PO SCH (09:00)
--- NOTE | 2022-07-13 09:02 | NUR ---
Spoke with Liv requesting orders from Dr. Perla.
[2022-07-13] MEDS ORDERED: ETOMIDATE 20 MG/ 10 ML VIAL (AMIDATE) IVP ONE (09:10)
[2022-07-13] MEDS ORDERED: ROCURONIUM BROMIDE 10 MG/ML (ZEMURON) IV ONE (09:10)
--- NOTE | 2022-07-13 10:27 | NUR ---
pt going to CT-Scan for head, RT present.
--- NOTE | 2022-07-13 10:27 | NUR ---
RT NOTES @1005 Pt. was prepped for CT, oral and ET sxn done. Assisted in transporting pt to and from CT, bagged with 100% O2 via resus. bag to ETT. Pt on the vent once in CT and back in the room with same settings. A/w remains secure/patent.
[2022-07-13] MEDS ORDERED: FLUCONAZOLE 200 mg/ NS 100 ML IV SCH (11:00)
--- NOTE | 2022-07-13 11:43 | NUR ---
at bedside, up date given to .
--- NOTE | 2022-07-13 11:52 | NUR ---
Dietitian Recommendations * Advance Vital AF to 50mL/hr, Prosource BID via OGT Provides (w/ prop and prosource): 1804 kcal, 120 g PRO, 973mL free water Meets: 98% of est kcal, 90% of upper est PRO, and 54% water needs * Consider FWF 125mL q6h, or per MD * Ordered: Ponce BID * Consider wound supplements: MVI, 250 mg VIT C; 220mg ZnSO4 x 14 days for wound healing GS, MPH, RD Please refer to RD Assessment for further details. Thanks! Addendum: 07/13/22 at [address] Amended: Links added.
--- NOTE | 2022-07-13 12:00 | NUR ---
RT NOTES Confirmed with RN ok to do CPAP, sedation is off. Pt is awake, responding appropriately, at bedside, both educated on cpap. Vent to cpap of [address] order. No adverse reactions noted. will monitor pt.
--- NOTE | 2022-07-13 13:25 | NUR ---
RT NOTES Vent back to AC due to tachypnea
--- NOTE | 2022-07-13 13:27 | NUR ---
pt will go back to AC due to tachypnea.
[2022-07-13] MEDS: LINEZOLID 300 ML IV SCH (20:53)
[2022-07-13] MEDS: FENTANYL CITRATE-0.9 % NACL/PF 100 ML IV PRN (22:16)
[2022-07-14] VITALS (32 sets, daily range): BP systolic 90–123
[2022-07-14] MEDS: PIPERACILLIN/TAZO 3.375/DEX-IS 50 ML IV SCH ×5 (00:21→23:38)
[2022-07-14] MEDS: PROPOFOL DRIP 100 ML IV PRN ×3 (03:33→23:39)
[2022-07-14 06:54] LABS: BASOPHILS % (AUTO) 0.3 % (0.0-2.0); EOSINOPHILS # (AUTO) 0.6 K/uL (0.0-0.4); EOSINOPHILS % (AUTO) 4.8 % (0.0-4.0); HEMATOCRIT 31.2 % (36-54); HEMOGLOBIN 9.7 g/dL (14.0-18.0); LYMPHOCYTES # (AUTO) 1.2 K/uL (1.0-5.5); LYMPHOCYTES % (AUTO) 9.2 % (20.5-51.5); MEAN CORPUSCULAR HEMOGLOBIN 26 pg (27-31); MEAN CORPUSCULAR HGB CONC 31 % (32-36); MEAN CORPUSCULAR VOLUME 82 fL (79.0-98.0); MONOCYTES % (AUTO) 7.4 % (1.7-9.3); NEUTROPHILS # (AUTO) 10.4 K/uL (1.8-7.7); NEUTROPHILS % (AUTO) 78.3 % (40.0-70.0); PLATELET COUNT (AUTO) 401 K/uL (130-430); RED BLOOD CELL COUNT(AUTO) 3.81 MIL/uL (4.2-6.2); RED CELL DISTRIBUTION WIDTH 18.2 % (9.0-15.0); WHITE BLOOD COUNT (AUTO) 13.3 K/uL (4.8-10.8)
--- NOTE | 2022-07-14 07:00 | NUR ---
Open notes: received report from the production shift supervisor RN. 52-year-old man, history of transverse myelitis who is bedbound/wheelchair. Recurrent UTI indwelling Cason catheter who was brought to the hospital due to possible UTI worsening respiratory status worsening confusion. PT intubated on 07-12-22, AC18, V500. 40%, PEEP 5. LIJ Triple Lumen, Diprivan 15mcg/kg/min, Fentanyl 20mcg/kg/min. OGT Vital at 10ml/hr. Cason catheter in place. Bilateral soft wrist restraints. Bilateral lower extremities edema with scaly cellulitis appearance. Family will be updated.
[2022-07-14 07:30] LABS: CALCIUM 8.5 mg/dL (8.4-11.0); CREATININE 0.44 mg/dL (0.55-1.30)
[2022-07-14] MEDS: acetaZOLAMIDE 250 MG TABLET (DIAMOX) PO SCH ×2 (08:30→20:30)
[2022-07-14] MEDS: LINEZOLID 300 ML IV SCH ×2 (08:35→20:30)
[2022-07-14] MEDS: APIXABAN 2.5 MG TABLET PO SCH ×2 (08:36→20:30)
[2022-07-14] MEDS: NYSTATIN 15 GM TOPICAL POWDER TP SCH ×2 (08:37→20:30)
[2022-07-14] MEDS: LANOLIN ALCOHOL/MO/W.PET/CERES 57 GM CREAM..G. TP SCH ×2 (08:37→20:30)
[2022-07-14] MEDS: BALSAM PERU/CASTOR OIL 56.7 GM OINT...G. TP SCH (08:37)
--- NOTE | 2022-07-14 10:52 | NUR ---
RT AT BEDSIDE, CPAP STARTED.
--- NOTE | 2022-07-14 10:52 | NUR ---
RT NOTES Per RN, ok to start CPAP, VENT to CPAP 5 ps12. No immediate adverse reactions noted. Pt. was re-educated on SBT, was initially apprehensive, but agreed to CPAP. Will monitor pt.
--- NOTE | 2022-07-14 11:00 | NUR ---
WOUND PICTURES WERE TAKING, UPDATE FAMILY OF THE STATUS. WILL CONTACT WOUND CARE. Addendum: 07/15/22 at 1725 by Cristóbal Jose RN AMEND- TURN PT EVERY 2 HRS BUT FAVOR RIGHT SIDE REGARDLESS OF TURNING.
--- NOTE | 2022-07-14 11:15 | NUR ---
AT BEDSIDE, UPDATE GIVEN.
[2022-07-14] MEDS: ACETAMINOPHEN 500 MG TABLET PO PRN (11:24)
--- NOTE | 2022-07-14 11:50 | NUR ---
RT NOTES R.R elevated, but pt nodded "ok" when asked "if breathing was okay". at bedside.
--- NOTE | 2022-07-14 12:21 | NUR ---
CPAP TRIAL STOPPED, PT TOLERATED WELL.
--- NOTE | 2022-07-14 12:21 | NUR ---
RT NOTES Vent back to AC.
[2022-07-14] MEDS ORDERED: BACLOFEN 10 MG TABLET PO ONE (13:30)
--- NOTE | 2022-07-14 18:00 | NUR ---
and sister at bed side.
--- NOTE | 2022-07-14 19:25 | NUR ---
PM SHIFT ASSESSMENT PT SEDATED ON THE VENT, TOLERATING CURRENT VENT SETTINGS. SR ON THE MONITOR. IVF INFUSING TO TLC. SKIN WARM AND DRY. SAFETY PRECAUTIONS IN PLACE, CALL LIGHT WITHIN REACH. WILL CONTINUE TO MONITOR.
[2022-07-14] MEDS: NACL 0.9% 1,000 ML IV SCH ×2 (19:36→20:31)
[2022-07-15] VITALS (28 sets, daily range): BP systolic 88–132
[2022-07-15] MEDS: PROPOFOL DRIP 100 ML IV PRN ×3 (04:26→14:50)
[2022-07-15] MEDS: PIPERACILLIN/TAZO 3.375/DEX-IS 50 ML IV SCH ×3 (06:17→18:08)
[2022-07-15] MEDS: FENTANYL CITRATE-0.9 % NACL/PF 100 ML IV PRN (06:44)
--- NOTE | 2022-07-15 07:00 | NUR ---
Open notes: received report from the joy operator Vaishali PANIAGUA. 52-year-old man, history of transverse myelitis who is bedbound/wheelchair. Recurrent UTI indwelling Cason catheter who was brought to the hospital due to possible UTI worsening respiratory status worsening confusion. PT intubated on 07-12-22, AC16, V500. 40%, PEEP 5. LIJ Triple Lumen, Diprivan 40mcg/kg/min, Fentanyl 40mcg/kg/min. OGT Vital at 50ml/hr. Cason catheter in place. Bilateral lower extremities edema with scaly cellulitis appearance. Family will be updated.
[2022-07-15 07:08] LABS: CALCIUM 8.7 mg/dL (8.4-11.0); CREATININE 0.47 mg/dL (0.55-1.30); TOTAL BILIRUBIN 0.4 mg/dL (0.0-1.0)
--- NOTE | 2022-07-15 07:15 | NUR ---
ENDORSEMENT PATIENT CARE ENDORSED TO JED PANIAGUA.
[2022-07-15 07:46] LABS: BASOPHILS # (AUTO) 0.1 K/uL (0.0-0.2); BASOPHILS % (AUTO) 0.3 % (0.0-2.0); EOSINOPHILS # (AUTO) 0.7 K/uL (0.0-0.4); EOSINOPHILS % (AUTO) 4.4 % (0.0-4.0); HEMATOCRIT 30.9 % (36-54); HEMOGLOBIN 9.7 g/dL (14.0-18.0); LYMPHOCYTES # (AUTO) 1.5 K/uL (1.0-5.5); LYMPHOCYTES % (AUTO) 9.8 % (20.5-51.5); MEAN CORPUSCULAR HEMOGLOBIN 26 pg (27-31); MEAN CORPUSCULAR HGB CONC 32 % (32-36); MEAN CORPUSCULAR VOLUME 82 fL (79.0-98.0); MONOCYTES % (AUTO) 6.8 % (1.7-9.3); NEUTROPHILS # (AUTO) 11.8 K/uL (1.8-7.7); NEUTROPHILS % (AUTO) 78.7 % (40.0-70.0); PLATELET COUNT (AUTO) 383 K/uL (130-430); RED BLOOD CELL COUNT(AUTO) 3.76 MIL/uL (4.2-6.2); RED CELL DISTRIBUTION WIDTH 18.3 % (9.0-15.0)
[2022-07-15] MEDS: acetaZOLAMIDE 250 MG TABLET (DIAMOX) PO SCH ×2 (09:16→21:36)
[2022-07-15] MEDS: APIXABAN 2.5 MG TABLET PO SCH ×2 (09:17→21:46)
[2022-07-15] MEDS: LINEZOLID 300 ML IV SCH (09:18)
[2022-07-15] MEDS ORDERED: BISACODYL 10 MG/SUPPOSITORY RC ONE (09:45)
[2022-07-15] MEDS: NYSTATIN 15 GM TOPICAL POWDER TP SCH ×2 (09:53→21:39)
[2022-07-15] MEDS: LANOLIN ALCOHOL/MO/W.PET/CERES 57 GM CREAM..G. TP SCH ×2 (09:53→21:37)
[2022-07-15] MEDS: BALSAM PERU/CASTOR OIL 56.7 GM OINT...G. TP SCH (09:54)
[2022-07-15] MEDS ORDERED: SODIUM PHOSPHATE,MONO-DIBASIC 133 ML ENEMA RC ONE (10:00)
[2022-07-15] MEDS ORDERED: PANTOPRAZOLE SODIUM 40 MG/VIAL (PROTONIX) IVP SCH (10:00)
[2022-07-15] MEDS ORDERED: PANTOPRAZOLE SODIUM 40 MG/VIAL (PROTONIX) IVP ONE (10:00)
[2022-07-15] MEDS ORDERED: BACLOFEN 10 MG TABLET PO ONE (10:00)
--- NOTE | 2022-07-15 11:43 | NUR ---
RT AT BED SIDE FOR CPAP TRIAL.
--- NOTE | 2022-07-15 11:45 | NUR ---
PT UNABLE TO TOLERATE CPAP, PT WENT BACK ON AC.
[2022-07-15] MEDS: BACLOFEN 10 MG TABLET PO SCH ×2 (14:44→21:36)
--- NOTE | 2022-07-15 15:15 | NUR ---
WOUND EVALUATION: Wound Consult received from Dr. Vega. Thank you, Dr. Vega, for the consult. Patient received in a [place] Bed with a P500 mattress, sedated, intubated. Patient has been able to move in bed, and was able to roll back into supine position post being turned per nurse report (ARCELIA Ambrocio). Contreras Score is a 12. Past Medical History: Limited Lung Capacity, bedridden, ambulates minimally with walker (mostly in a wheelchair), recent vertebral surgery done, incapacitated, incontinent to urine and has a Cason catheter, Spinal surgery with spinal tamie to stabilize Scoliosis. Recent Labs: WBC 15.0, RBC 3.76, hemoglobin 9.7, hematocrit 30.9, ESR 92, albumin 2.0, BUN 16, creatinine 0.47, GFR 198. Microbiology: Blood culture results x2 in progress. Wound culture results in progress. Bronchioloalveolar washing culture results in progress urine culture results negative (possible contamination). Second urine culture results in progress. Blood culture results x2 negative. Intrinsic factors that delay wound healing: Limited Lung Capacity, Hyperglycemia, Hypoalbuminemia. Extrinsic factors that delay wound healing: Decreased mobility, bedbound. Per assessment by Dr. Birch: Acute on chronic hypoxemic respiratory failure Acute on chronic hypercapnic respiratory failure UTI Pneumonia Obesity Bilateral lower extremity cellulitis versus edema Metabolic encephalopathy Quadriparesis Diaphragm Paralysis /weakness Wound Assessment: 1. Sacral-Coccygeal area: Stage IV pressure ulcer, present on admission. Wound bed has 90% yellow slough, 10% red tissue. No odor, scant red drainage. Claudia-wound white. Hard feel present at bottom of wound. Undermining present from 84 o'clock. Wound measures 2.2 cm x 2.0 cm x 3.0 cm. Left buttock has circular red nonblanchable area present admission, which has progressed along with Stage IV to an sDTI (still a Stage IV). sDTI site measured 15.5 cm x 15.0 cm, with 20% dark red tissue, 80% dark discolored tissue. There were two open areas: 1. Left Lower Sacral/Upper Buttock area had several small open areas (including Intergluteal Cleft) with 85% dark discolored tissue and 15% dark red tissue, collectively measuring 7.3 cm x 11.7 cm. Right Buttock area with 70% dark red tissue, 30% dark discolored tissue, measuring 1.8 cm x 1.1 cm. Surrounding tissue area has light (fading) purple discoloration. Will continue to monitor site. Recommend: Cleanse wound with normal saline. Apply moisture barrier cream to claudia-wound. Apply Venelex ointment to open areas. APply calcium alginate dressings to non-open areas of sDTI. Pack Coccygeal wound with 1/2 inch iodoform packing strip. Cover site with non-adhesive foam dressings, secure with transparent dressings. Perform wound care daily, and as needed for dressing soiling or dislodgement. 2. Left Inguinal area: Intertrigo with erythema from IAD, present on admission. 3. Right Inguinal area: Intertrigo with erythema from IAD, present on admission. 4. Scrotum: Erythema from IAD, present on admission Recommend continue: Cleanse involved areas with mild soap and water. Gently pat dry. Place Interdry AG cloth underneath scrotum apply antifungal powder to bilateral inguinal areas and scrotal area. Dust off excess powder. Pull scrotum up off of bed by pulling Interdry Ag cloth in between bilateral thighs. Perform site care twice daily. Change Interdry cloth every 5 days and as needed for cloth soiling or dislodgment. 5. Abdominal fold: Intertrigo with erythema from IAD, present on admission. Recommend continue: Cleanse involved areas with mild soap and water. Pat dry. Apply antifungal powder to involved areas. Dust off excess powder. Place Interdry AG cloth in between abdominal fold area. Perform site care twice daily. Change Interdry cloth every 5 days and as needed for cloth soiling or dislodgment. 6. Left Lower Extremity: Mild erythema with dry scaly skin, present on admission. 7. Right Lower Extremity: Moderate erythema with dry scaly skin, present on admission. Skin is warm to the touch. Recommend continue: Cleanse bilateral lower extremities with mild soap and water. Gently pat dry. Apply Eucerin cream to bilateral lower extremities. Perform site care twice daily. Cut calcium alginate dressings to size and place in between toes. Replace alginate dressing every 5 days and as needed for dressing soiling or dislodgment. Also recommend continue: Reposition patient side to side only every 2 hours with pillow support and off-load pressure areas with pillows for pressure re-distribution. Offload, elevate and float bilateral heels with pillows. Perform skin care and monitor skin integrity Q shift. Use moisture barrier cream on buttocks and other moisture susceptible areas QID and as needed for soiling. Place patient on a P500 low air-loss mattress.
--- NOTE | 2022-07-15 16:00 | NUR ---
PRODUCTION COORDINATOR ARRIVED, PT WITH DTI, FAMILY INFORMED, PAGED DR. SWEENEY TO INFORM ABOUT THE NEW STATUS. PT KEEP FAVORING HIS RIGHT SIDE EVEN THOUGH HE IS TURN EVERY 2 HRS. WOUND CARE ORDERS CARRIED OUT PER WOUND CARE NURSE. Addendum: 07/15/22 at 1727 by Cristóbal Jose RN SPOKE WITH DR. SCHWARTZ COVERING PCP, INFORMED ABOUT THE STATUS OF WOUND, AND FUTURE WOUND CARE. ALSO AWARE FAMILY IS NOTIFIED.
--- NOTE | 2022-07-15 17:00 | NUR ---
RT AT BEDSIDE, WILL TRY CPAP.
--- NOTE | 2022-07-15 17:05 | NUR ---
PT UNABLE TO TOLERATE CPAP, PT WENT BACK ON AC.
--- NOTE | 2022-07-15 17:22 | NUR ---
rt notes 1145 pt not able to tolerate cpap at this time pt tachypneic, will try later. 1700 tried cpap on pt. pt apneic, placed back to acMery nguyễn aware. Addendum: 07/15/22 at 1723 by Natalie Faria RT Amended: Links added.
--- NOTE | 2022-07-15 17:51 | NUR ---
LEFT VOICE MAIL FOR TO CALL BACK FOR UPDATE ON PT STATUS.
--- NOTE | 2022-07-15 19:01 | NUR ---
SPOKE WITH AND UPDATE ON WOUND AND CPAP STATUS.
--- NOTE | 2022-07-15 19:03 | NUR ---
SPECIAL BED WAS ORDER BY THE TRUST OFFICER, WILL ARRIVE 07-15-22
[2022-07-15] MEDS: NACL 0.9% 1,000 ML IV SCH (19:20)
--- NOTE | 2022-07-15 19:30 | NUR ---
RECEIVED PATIENT SEDATED WITH FENTANYL DRIP AT 25 MCG/HR, PROPOFOL AT 5 MCG/KG/MIN AND PRECEDEX AT 0.4 MCG/KG/HR , RASS-2. PATIENT IS ORALLY INTUBATED, ETT 7.5 AT 27 CM LIPLINE, AC 16, TV 500, FIO2 30%, PEEP 5.. BILATERAL BASES ARE DIMINISHED TO AUSCULTATION. SAT 98%. NUT SHELLER MACHINE OPERATOR IS SHOWING SINUS ARRHYTHMIA. SBP >90. NS IS INFUSING AT 50ML/HR. VITAL IS INFUSING AT 30 ML/HR VIAOGT. LOVING INTACT.
--- NOTE | 2022-07-15 23:00 | NUR ---
WE TRIED TO SWITH THE BED TO A NEW DELIVERED [place] BED, [facility]. PATIENT WAS ALREADY IN BED BUT IT KEPT ALARMING AND STATING CPR NEEDS TO BE REFACTORED. THE BED JUST SWITCH TO CPR MODE. WE COULD NOT RAISE THE HEAD OF THE PATIENT. THERE WERE 3 NURSES WHO TRIED TO CHECK THE SETTINGS AND TO REMOVE THE CPR MODE TO NO AVAIL. WE DECIDED TO PLACED THE PATIENT BACK TO HIS OLD BED. [employer] NOTIFIED OF THE PROBLEM AND TALKED TO ROSAMARIA. A CERTIFIED NURSING ATTENDANT WILL COME TOMORROW BETWEEN 08AM TO 10AM TO FIX THE BED.
[2022-07-16] VITALS (36 sets, daily range): BP systolic 84–118
[2022-07-16] MEDS: PIPERACILLIN/TAZO 3.375/DEX-IS 50 ML IV SCH ×4 (00:02→17:34)
--- NOTE | 2022-07-16 00:18 | NUR ---
HAD TO CALL [facility] ON THE RENTAL BED FOR ICU1. THE CPR ARE HANDLE IS BROKEN. SPOKE WITH TAMMY SHE PUT AN ORDER FOR A TECH TO COM OUT. GUALBERTO #[id number]. RECIEVED A CALL BACK FROM RENATA LETTING US KNOW HE WOULD BE OUT BETWEEN 8 AND 10 AM TODAY
[2022-07-16] MEDS: FENTANYL CITRATE-0.9 % NACL/PF 100 ML IV PRN (00:30)
--- NOTE | 2022-07-16 08:00 | NUR ---
Initial notes Open his eyes when name called, on precedex, diprivan and fentanyl. intubated On AC 16, FIO2 at 30%. NS infusing at 50cc/hr. Cason catheter draining well. Repositioned. Afebrile. Sinus on the monitor.
[2022-07-16] MEDS: PANTOPRAZOLE SODIUM 40 MG/VIAL (PROTONIX) IVP SCH (08:47)
[2022-07-16] MEDS: acetaZOLAMIDE 250 MG TABLET (DIAMOX) PO SCH ×2 (08:48→20:29)
[2022-07-16] MEDS: APIXABAN 2.5 MG TABLET PO SCH ×2 (08:48→20:38)
[2022-07-16] MEDS: BACLOFEN 10 MG TABLET PO SCH ×3 (08:48→20:28)
[2022-07-16] MEDS: BALSAM PERU/CASTOR OIL 56.7 GM OINT...G. TP SCH (08:49)
[2022-07-16] MEDS: LANOLIN ALCOHOL/MO/W.PET/CERES 57 GM CREAM..G. TP SCH ×2 (08:50→20:29)
[2022-07-16] MEDS: NYSTATIN 15 GM TOPICAL POWDER TP SCH ×2 (08:50→20:30)
[2022-07-16] MEDS: PROPOFOL DRIP 100 ML IV PRN ×2 (09:07→22:08)
--- NOTE | 2022-07-16 09:50 | NUR ---
rt notes 0950 Placed pt on CPAP 5, PS10 35% FIO2, Pt saturating 94%. coached pt to do deep breathing, pt tolerating cpap trial. will cont to monitor pt. gopi maher made aware.
--- NOTE | 2022-07-16 11:04 | NUR ---
Nutrition F/U RD reviewed pts current EMR including diet hx, physician notes, nursing notes, pertinent labs/meds/procedures, care trends and care activity. Short note d/t high workload Subjective Information RD attended ICU meeting and s/w primary RN regarding pt condition. RN attest to pt having DTI on sacrum; RD noted that Ponce is ordered and being documented. RN reports LBM 07/15 and that pt seems to be tolerating TF well; residuals documented are low (under 25 mL since 07/14). RD witnessed pt getting rate of 30 mL/hr and let RN know that the goal is 50 mL; she said she would look into it. RN reports that pt is receiving prop at 10 mcg (provides 162 [address]). RD witnessed VeTOT of 7.3. Per EMR review: pt abd is soft, distended, with hyperactive bowel sounds. Pt is likely meeting nutritional needs at this time. Current Diet Order/Nutrition Support Vital AF 1.2 @ 50 mL/hr, Prosource BID, Ponce BID, Free water flush 50mL Q4H via OGT x 2 days Provides w/ prop, prosource, ponce): 1902 kcal, 125 g PRO, 1273 mL free water (inc FWF) Meets: 104% kcal, 93% of upper est PRO and 71% est fluid needs % PO intake NPO Last BM 07/15/22 x 1 per RN Estimated Energy Expenditure (kcals/day) 1834 kcal (PSU 2009: critical illnes/vent. MSJ 1829, Tmax 37.1, Ve 7.3) Estimated Protein Required (g/day) 101-134 g (1.5-2g/kg ABW d/t wounds) Estimated Fluid Required (l/day) 1.8L (1ml/kcal maintenance Problem/Etiology/Signs/Symptoms * Suboptimal EN support R/T underfeeding AEB current TF prescription meets 60% of estimated caloric needs and 53% of lower end of estimated protein needs (Resolved) * Increased energy and protein utilization r/t metabolic demands AEB estimated nutritional needs for wound healing (ongoing) Dietitian Recommendations * Continue Vital AF 1.2 @ 50 mL/hr, Prosource BID, Ponce BID via OGT Provides w/ prop, prosource, ponce): 1902 kcal, 125 g PRO Meets: 104% kcal, 93% of upper est PRO * Consider FWF 125mL q6h, or per MD * Continue Ponce BID * Consider wound supplements: MVI, 250 mg VIT C; 220mg ZnSO4 x 14 days for wound healing * If pt is extubated, please contact RD to re-assess nutritional needs Follow up: Moderate risk: follow up in 3-5 days JANET, MPH, RD
--- NOTE | 2022-07-16 11:06 | NUR ---
Dietitian Recommendations * Continue Vital AF 1.2 @ 50 mL/hr, Prosource BID, Ponce BID via OGT Provides w/ prop, prosource, ponce): 1902 kcal, 125 g PRO Meets: 104% kcal, 93% of upper est PRO * Consider free water flush of 125mL q6h, or per MD * Continue Ponce BID * Consider wound supplements: MVI, 250 mg VIT C; 220mg ZnSO4 x 14 days for wound healing * If pt is extubated, please contact RD to re-assess nutritional needs GS, MPH, RD Please refer to Nutrition F/U for further details. Thanks!
[2022-07-16] MEDS: IPRATROPIUM/ALBUTEROL SULFATE 3 ML AMPUL.NEB (DUONEB) INH SCH ×2 (13:34→19:37)
[2022-07-16] MEDS: NACL 0.9% 1,000 ML IV SCH ×2 (14:53→15:47)
[2022-07-16] MEDS: FLUCONAZOLE 200 mg/ NS 100 ML IV SCH (15:39)
--- NOTE | 2022-07-16 20:05 | NUR ---
RECEIVED SEDATED WITH PROPOFOL AT 10 MCG/KG/MIN, FENTANYL DRIP AT 20MCG/HR, PRECEDEX AT 0.3 MCG/KG/HR, RASS -2. ORALLY INTUBATED, ETT 7.5 AT 27 CM LIPLINE. SAT WDL. AUTO BATTERY BUILDER IS SHOWING NSR, PATIENT HAS NS AT 50 ML/HR. ALL IVS ARE INFUSING TO LEFT IJ TLC. SKIN WARM AND DRY. ABDOMEN SOFT AND NON-DISTENDED. OGT FEEDING OF VITAL AT 30 ML/HR. HOB ELEVATED. ON ASPIRATION PRECAUTION. LOVING CATH DRAINING WELL. SACRAL DRESSING INTACT. BILATERAL LOWER EXTREMITY REDNESS , SCALY AND SWELLING.
[2022-07-17] VITALS (33 sets, daily range): BP systolic 86–104
[2022-07-17] MEDS: IPRATROPIUM/ALBUTEROL SULFATE 3 ML AMPUL.NEB (DUONEB) INH SCH ×4 (00:03→19:48)
[2022-07-17] MEDS: PIPERACILLIN/TAZO 3.375/DEX-IS 50 ML IV SCH ×5 (00:04→23:39)
--- NOTE | 2022-07-17 08:14 | NUR ---
RT NOTES FIO2 TO 0.40 PER TITRATION ORDER. DIPRIVAN IS STILL ON, UNABLE TO DO CPAP TRIAL YET. RN AWARE OF DAILY SBT.
[2022-07-17] MEDS: PANTOPRAZOLE SODIUM 40 MG/VIAL (PROTONIX) IVP SCH (08:58)
[2022-07-17] MEDS: BACLOFEN 10 MG TABLET PO SCH ×3 (08:59→22:30)
[2022-07-17] MEDS: APIXABAN 2.5 MG TABLET PO SCH ×2 (08:59→22:38)
[2022-07-17] MEDS: acetaZOLAMIDE 250 MG TABLET (DIAMOX) PO SCH ×2 (08:59→22:31)
--- NOTE | 2022-07-17 09:19 | NUR ---
RT NOTES Confirmed, sedation is off, per daily SBT, vent to CPAP 5 PS 12. No adverse reactions noted. Will monitor pt.
--- NOTE | 2022-07-17 10:33 | NUR ---
RT NOTES Pt cont. to tolerate CPAP, no distress noted.
--- NOTE | 2022-07-17 11:33 | NUR ---
RT NOTES Vent back to AC per 2 hours cpap order. Pt. tolerated cpap well.
[2022-07-17] MEDS: FLUCONAZOLE 200 mg/ NS 100 ML IV SCH (14:13)
[2022-07-17] MEDS: LANOLIN ALCOHOL/MO/W.PET/CERES 57 GM CREAM..G. TP SCH ×2 (17:32→22:33)
[2022-07-17] MEDS: FENTANYL CITRATE-0.9 % NACL/PF 100 ML IV PRN (17:32)
[2022-07-17] MEDS: NYSTATIN 15 GM TOPICAL POWDER TP SCH ×2 (17:32→22:34)
[2022-07-17] MEDS: BALSAM PERU/CASTOR OIL 56.7 GM OINT...G. TP SCH (17:32)
--- NOTE | 2022-07-17 19:25 | NUR ---
RT NOTES. PT IS ALERT AND UNCOOPERATIVE. WOULD TRY TO LISTEN TO BREATH SOUNDS BUT PT WOULD HIT ME AWAY AND TELL ME TO GET OUT. PT REFUSED ME GETTING NEAR HIM. UNABLE TO PUT AIR IN CUFF, MOVE ET TUBE, AND SUCTION.
--- NOTE | 2022-07-17 19:30 | NUR ---
RECEIVED AWAKE, ALERT, REFUSES EVERYTHING INCLUDING RT'S INITIAL ASSESSMENT. PATIENT IS ON PRECEDEX AT 0.3 MCG/KG/HR, FENTANYL AT 20 MCG/HR. ORALLY INTUBATED, ETT 7.5 AT 27 CM LIPLINE. AC 16, FIO2 30%, TV 500 AND PEEP 5. SUCTIONED PRN. SAT 96%. NUCLEAR EQUIPMENT RESEARCH ENGINEER SHOWS NSR, DENIES CHEST PAIN, SBP > 100. NS IS INFUSING AT 50 ML/HR. ALL IVS ARE INFUSING THROUGH LEFT IJ TLC. SKIN WARM AND DRY. ABDOMEN IS SOFT AND NON-DISTENDED. OGT FEEDING OF VITAL AF IS INFUSING AT 50 ML/HR. ON ASPIRATION PRECAUTION. HOB ELEVATED. LOVING INTACT AND PATENT. SACRAL DRESSING INTACT, BILATERAL LOWER EXTREMITIES ARE SCALY, RED AND EDEMATOUS. PATIENT IS ON SPECIAL BED FOR SKIN PROBLEM.
--- NOTE | 2022-07-17 21:00 | NUR ---
PATIENT IS VERY UNCOOPERATIVE, RESED LUNG AUSCULTATION BY RT, REFUSED SUCTIONING AND WANTS RESP THERAPIST TO LEAVE THE ROOM. PATIENT IS DISORIENTED, PROPOFOL RESTARTED AT 5 MCG/KG/MIN. WILL MONITOR BLOOD PRESSURES AND NEURO STATUS.
[2022-07-18] VITALS (32 sets, daily range): BP systolic 89–119
[2022-07-18] MEDS: IPRATROPIUM/ALBUTEROL SULFATE 3 ML AMPUL.NEB (DUONEB) INH SCH ×3 (01:42→14:40)
[2022-07-18] MEDS: PROPOFOL DRIP 100 ML IV PRN (04:53)
[2022-07-18 07:03] LABS: BASOPHILS # (AUTO) 0.1 K/uL (0.0-0.2); BASOPHILS % (AUTO) 0.5 % (0.0-2.0); EOSINOPHILS # (AUTO) 0.3 K/uL (0.0-0.4); EOSINOPHILS % (AUTO) 3.1 % (0.0-4.0); HEMATOCRIT 29.9 % (36-54); HEMOGLOBIN 9.3 g/dL (14.0-18.0); LYMPHOCYTES # (AUTO) 1.3 K/uL (1.0-5.5); LYMPHOCYTES % (AUTO) 12.3 % (20.5-51.5); MEAN CORPUSCULAR HEMOGLOBIN 26 pg (27-31); MEAN CORPUSCULAR HGB CONC 31 % (32-36); MEAN CORPUSCULAR VOLUME 82 fL (79.0-98.0); MONOCYTES # (AUTO) 0.7 K/uL (0.0-1.0); MONOCYTES % (AUTO) 6.4 % (1.7-9.3); NEUTROPHILS # (AUTO) 8.5 K/uL (1.8-7.7); NEUTROPHILS % (AUTO) 77.7 % (40.0-70.0); PLATELET COUNT (AUTO) 411 K/uL (130-430); RED BLOOD CELL COUNT(AUTO) 3.63 MIL/uL (4.2-6.2); RED CELL DISTRIBUTION WIDTH 17.9 % (9.0-15.0); WHITE BLOOD COUNT (AUTO) 10.9 K/uL (4.8-10.8)
[2022-07-18 07:05] LABS: C-REACTIVE PROTEIN QUANT 4.7 mg/dL (0-0.5); CALCIUM 8.2 mg/dL (8.4-11.0); CREATININE 0.62 mg/dL (0.55-1.30)
[2022-07-18] MEDS: PIPERACILLIN/TAZO 3.375/DEX-IS 50 ML IV SCH ×4 (07:35→23:23)
[2022-07-18] MEDS: NACL 0.9% 1,000 ML IV SCH (07:36)
[2022-07-18] MEDS: PANTOPRAZOLE SODIUM 40 MG/VIAL (PROTONIX) IVP SCH (08:40)
[2022-07-18] MEDS: ACETAMINOPHEN 500 MG TABLET PO PRN ×2 (08:41→14:57)
[2022-07-18] MEDS: BACLOFEN 10 MG TABLET PO SCH ×3 (08:42→20:44)
[2022-07-18] MEDS: APIXABAN 2.5 MG TABLET PO SCH ×2 (08:43→20:45)
[2022-07-18] MEDS: LANOLIN ALCOHOL/MO/W.PET/CERES 57 GM CREAM..G. TP SCH ×2 (08:56→20:47)
[2022-07-18] MEDS: BALSAM PERU/CASTOR OIL 56.7 GM OINT...G. TP SCH (08:57)
[2022-07-18] MEDS: NYSTATIN 15 GM TOPICAL POWDER TP SCH ×2 (09:36→20:47)
[2022-07-18] MEDS: acetaZOLAMIDE 250 MG TABLET (DIAMOX) PO SCH ×2 (09:36→20:44)
[2022-07-18 10:43] LABS: ERYTHROCYTE SEDIMENTATION RATE 102 MM/HR (0-15)
[2022-07-18] MEDS: FLUCONAZOLE 200 mg/ NS 100 ML IV SCH (14:56)
--- NOTE | 2022-07-18 19:30 | NUR ---
PM SHIFT ASSESSMENT PATIENT IS AWAKE AND ALERT. SPO2 ABOVE 93%, TOLERATING CURRENT VENT SETTINGS. SR ON MONITOR. IVF INFUSING. SAFETY PRECAUTIONS IN PLACE, CALL LIGHT WITHIN REACH. SISTER AT BEDSIDE. WILL CONTINUE TO MONITOR.
[2022-07-18] MEDS ORDERED: DEXMEDETOMIDINE HCL 200 MCG/2 ML VIAL IV ONE (20:34)
--- NOTE | 2022-07-18 20:35 | NUR ---
PRECEDEX DRIP MIXED BY SAP FUNCTIONAL ANALYST, INSTRUCTED TO MIX BY DIRECTOR OF CRITICAL CARE FINISHER SCREWDOWN. DRY CELL BATTERY ASSEMBLER AWARE.
[2022-07-19] VITALS (31 sets, daily range): BP systolic 91–119
[2022-07-19] MEDS: IPRATROPIUM/ALBUTEROL SULFATE 3 ML AMPUL.NEB (DUONEB) INH SCH ×3 (00:08→19:32)
[2022-07-19] MEDS: PROPOFOL DRIP 100 ML IV PRN ×2 (02:30→13:57)
[2022-07-19] MEDS: NACL 0.9% 1,000 ML IV SCH ×2 (02:53→22:53)
[2022-07-19] MEDS: PIPERACILLIN/TAZO 3.375/DEX-IS 50 ML IV SCH ×3 (05:33→17:40)
[2022-07-19 06:24] LABS: BASOPHILS # (AUTO) 0.1 K/uL (0.0-0.2); BASOPHILS % (AUTO) 0.5 % (0.0-2.0); EOSINOPHILS # (AUTO) 0.4 K/uL (0.0-0.4); EOSINOPHILS % (AUTO) 3.5 % (0.0-4.0); HEMATOCRIT 29.4 % (36-54); HEMOGLOBIN 9.1 g/dL (14.0-18.0); LYMPHOCYTES # (AUTO) 1.3 K/uL (1.0-5.5); LYMPHOCYTES % (AUTO) 12.6 % (20.5-51.5); MEAN CORPUSCULAR HEMOGLOBIN 26 pg (27-31); MEAN CORPUSCULAR HGB CONC 31 % (32-36); MEAN CORPUSCULAR VOLUME 82 fL (79.0-98.0); MONOCYTES # (AUTO) 0.8 K/uL (0.0-1.0); MONOCYTES % (AUTO) 7.4 % (1.7-9.3); NEUTROPHILS # (AUTO) 8.1 K/uL (1.8-7.7); PLATELET COUNT (AUTO) 447 K/uL (130-430); RED BLOOD CELL COUNT(AUTO) 3.56 MIL/uL (4.2-6.2); RED CELL DISTRIBUTION WIDTH 18.4 % (9.0-15.0); WHITE BLOOD COUNT (AUTO) 10.7 K/uL (4.8-10.8)
[2022-07-19 07:01] LABS: C-REACTIVE PROTEIN QUANT 2.9 mg/dL (0-0.5); CALCIUM 8.5 mg/dL (8.4-11.0); CREATININE 0.3 mg/dL (0.55-1.30); TOTAL BILIRUBIN 0.4 mg/dL (0.0-1.0)
--- NOTE | 2022-07-19 07:23 | NUR ---
ENDORSEMENT PATIENT CARE ENDORSED TO JED PANIAGUA. ALL NEEDS MET.
[2022-07-19] MEDS: ACETAMINOPHEN 500 MG TABLET PO PRN ×3 (09:27→14:57)
[2022-07-19] MEDS: PANTOPRAZOLE SODIUM 40 MG/VIAL (PROTONIX) IVP SCH (09:28)
[2022-07-19] MEDS: BACLOFEN 10 MG TABLET PO SCH ×3 (09:28→21:00)
[2022-07-19] MEDS: LANOLIN ALCOHOL/MO/W.PET/CERES 57 GM CREAM..G. TP SCH ×2 (09:29→21:00)
[2022-07-19] MEDS: acetaZOLAMIDE 250 MG TABLET (DIAMOX) PO SCH ×2 (09:29→21:00)
[2022-07-19] MEDS: APIXABAN 2.5 MG TABLET PO SCH ×2 (09:29→21:00)
[2022-07-19] MEDS: BALSAM PERU/CASTOR OIL 56.7 GM OINT...G. TP SCH (09:30)
[2022-07-19] MEDS: NYSTATIN 15 GM TOPICAL POWDER TP SCH ×2 (09:30→21:00)
--- NOTE | 2022-07-19 10:26 | NUR ---
At 1025- On CPAP 0f 5 and PS-12 , 30% O2
--- NOTE | 2022-07-19 10:28 | NUR ---
1025 PT ON CPAP 5 PS12 TRIAL, TOLERATING WELL, HR71 RR 16 TV 421 SAT 96%. RN AWARE, WILL CONT TO MONITOR. Addendum: 07/19/22 at 1029 by Natalie Faria RT Amended: Links added.
[2022-07-19 12:02] LABS: ERYTHROCYTE SEDIMENTATION RATE 104 MM/HR (0-15)
--- NOTE | 2022-07-19 12:11 | NUR ---
RT NOTES 1210 BACK TO , PT TOLERATED WELL. SCHEDULED BREATHING TREATMENT GIVEN. NO DISTRESS NOTED, RN AWARE. Addendum: 07/19/22 at 1213 by Natalie Faria RT Amended: Links added.
[2022-07-19] MEDS: FLUCONAZOLE 200 mg/ NS 100 ML IV SCH (13:50)
--- NOTE | 2022-07-19 14:00 | NUR ---
1400 BACK TO BIPAP. TOLERATING AVAPS WELL. Addendum: 07/19/22 at 1401 by Natalie Faria RT Amended: Links added. Addendum: 07/19/22 at 1403 by Natalie Faria RT DISREGARD NOTE.WRONG PATIENT
--- NOTE | 2022-07-19 14:11 | NUR ---
1410 SUCTION SCANT THICK BLOOD TINGED SECRETIONS, NO ADVERSE EFFECTS, SAT 96% PT TOLERATED WELL. Addendum: 07/19/22 at 1412 by Natalie Faria RT Amended: Links added.
[2022-07-19] MEDS: FENTANYL CITRATE-0.9 % NACL/PF 100 ML IV PRN (15:26)
--- NOTE | 2022-07-19 15:52 | NUR ---
At 1550 pt c/o of difficulty of breathing- o2 sat-97, RR-16, HR-67 and BP is stable. Appear and looks like he was anxious, encouraged to a deep breath and up the Diprivan drip and Fentanyl drip
--- NOTE | 2022-07-19 19:46 | NUR ---
RECEIVED PATIENT IN VENT VIA ETT, SETTING OF THE VENT: AC/16 TV 500 FIO2 30% PP5, OG TUBE FEEDING WITH VITAL AT 50 ML/HR. SEDATED WITH PROPOFOL 10 MCG, FENTANYL 25 MCG. PRECEDEX 0.2 MCG/KG/HR , NS AT 50 ML/HR, ALL IV MEDS INFUSING AT LEFT IJ , SITE INTACT. F/C IN PLACE AND DRAIN TO GRAVITY , YELLOW URINE IN BAG. DTI AT SACRAL AREA COVERED WITH MEPILEX . WILL CONTINUE ICU MONITOR.
--- NOTE | 2022-07-19 23:27 | NUR ---
PATIENT IS A/O X 3, ABLE TO FOLLOW SIMPLE COMMEND AND ABLE TO MAKE NEEDS KNOWN. SUCTION FROM MOUTH AND IN LINE Q1H + PRN WITH YELLOWISH SECRETION. NO C/O PAIN AT THIS TIME, ORAL CARE GIVEN.
[2022-07-20] VITALS (26 sets, daily range): BP systolic 91–129
[2022-07-20] MEDS: PIPERACILLIN/TAZO 3.375/DEX-IS 50 ML IV SCH ×4 (00:46→18:42)
[2022-07-20] MEDS: PROPOFOL DRIP 100 ML IV PRN (00:50)
[2022-07-20] MEDS: IPRATROPIUM/ALBUTEROL SULFATE 3 ML AMPUL.NEB (DUONEB) INH SCH ×3 (01:00→19:34)
--- NOTE | 2022-07-20 04:00 | NUR ---
PUT PATIENT UP , NO BM IN MY SHIFT. NO C/O PAIN PER PATIENT. REFUSED RN TO DO WOUND CARE AT SACRAL ARER AND AM CARE.
[2022-07-20 06:25] LABS: BASOPHILS # (AUTO) 0.1 K/uL (0.0-0.2); BASOPHILS % (AUTO) 0.5 % (0.0-2.0); EOSINOPHILS # (AUTO) 0.4 K/uL (0.0-0.4); EOSINOPHILS % (AUTO) 3.9 % (0.0-4.0); HEMATOCRIT 27.9 % (36-54); HEMOGLOBIN 8.7 g/dL (14.0-18.0); LYMPHOCYTES # (AUTO) 1.4 K/uL (1.0-5.5); LYMPHOCYTES % (AUTO) 15.1 % (20.5-51.5); MEAN CORPUSCULAR HEMOGLOBIN 26 pg (27-31); MEAN CORPUSCULAR HGB CONC 31 % (32-36); MEAN CORPUSCULAR VOLUME 82 fL (79.0-98.0); MONOCYTES # (AUTO) 0.8 K/uL (0.0-1.0); MONOCYTES % (AUTO) 8.1 % (1.7-9.3); NEUTROPHILS # (AUTO) 6.7 K/uL (1.8-7.7); NEUTROPHILS % (AUTO) 72.4 % (40.0-70.0); PLATELET COUNT (AUTO) 479 K/uL (130-430); RED BLOOD CELL COUNT(AUTO) 3.42 MIL/uL (4.2-6.2); RED CELL DISTRIBUTION WIDTH 18.4 % (9.0-15.0); WHITE BLOOD COUNT (AUTO) 9.2 K/uL (4.8-10.8)
[2022-07-20 07:03] LABS: CALCIUM 8.5 mg/dL (8.4-11.0); CREATININE 0.33 mg/dL (0.55-1.30)
[2022-07-20] MEDS ORDERED: FUROSEMIDE 40 MG/4 ML VIAL IVP ONE (08:15)
--- NOTE | 2022-07-20 08:45 | NUR ---
RT NOTES 3526 PTPPLACED ON CPAP5 PS12 TRIAL. TOLERATING WELL, SAT95% HR 72 RR19. RN AWARE, WILL CONT TO MONITOR. Addendum: 07/20/22 at 0846 by Natalie Faria RT Amended: Links added.
[2022-07-20] MEDS: BACLOFEN 10 MG TABLET PO SCH ×3 (09:20→20:40)
[2022-07-20] MEDS: PANTOPRAZOLE SODIUM 40 MG/VIAL (PROTONIX) IVP SCH (09:20)
[2022-07-20] MEDS: acetaZOLAMIDE 250 MG TABLET (DIAMOX) PO SCH ×2 (09:26→20:40)
[2022-07-20] MEDS: APIXABAN 2.5 MG TABLET PO SCH ×2 (09:33→20:40)
--- NOTE | 2022-07-20 09:34 | NUR ---
Nutrition F/U RD reviewed pts current EMR including diet hx, physician notes, nursing notes, pertinent labs/meds/procedures, care trends and care activity. Subjective Information RD attended ICU meeting and s/w primary RN regarding pt condition. He said that pt will likely be extubated today; he is currently doing well on CPAP trials. RN reports RD witnessed pt getting rate of 50 mL/hr (goal). RN reports that pt is receiving prop at 10 mcg (provides 162 kcal), precedex @ 0.2 and fentanyl. RN reports that pt is A&0 x 2-3. RD suggested that pt be getting wound supplements: MVI, zinc and VIT C; RN took note and would contact Dr. Per EMR review: pt abd is soft, non-distended, with active bowel sounds; Last documented BM 07/12; Ponce has been documented since 07/14. Pt is likely meeting nutritional needs at this time. Current Diet Order/Nutrition Support Vital AF 1.2 @ 50 mL/hr, Prosource BID, Ponce BID, Free water flush 50mL Q4H via OGT x 7 days Provides w/ prop, prosource, ponce): 1902 kcal, 125 g PRO, 1273 mL free water (inc FWF) Meets: 104% kcal, 93% of upper est PRO and 71% est fluid needs % PO intake NPO Last BM 07/12/22 x 1 per EMR review Estimated Energy Expenditure (kcals/day) 1834 kcal (PSU 2010: critical illnes/vent. MSJ 1829, Tmax 37.1, Ve 7.3) Estimated Protein Required (g/day) 101-134 g (1.5-2g/kg ABW d/t wounds) Estimated Fluid Required (l/day) 1.8L (1ml/kcal maintenance Problem/Etiology/Signs/Symptoms * Suboptimal EN support R/T underfeeding AEB current TF prescription meets 60% of estimated caloric needs and 53% of lower end of estimated protein needs (Resolved) * Increased energy and protein utilization r/t metabolic demands AEB estimated nutritional needs for wound healing (ongoing) Dietitian Recommendations * Continue Vital AF 1.2 @ 50 mL/hr, Prosource BID, Ponce BID, Free water flush 50mL Q4H via OGT Provides w/ prop, prosource, ponce): 1902 kcal, 125 g PRO Meets: 104% kcal, 93% of upper est PRO * Continue Ponce BID * Consider wound supplements: MVI, 250 mg VIT C; 220mg ZnSO4 x 14 days for wound healing * Consider bowel regimen * If pt is extubated, please contact RD to re-assess nutritional needs Follow up: Moderate risk: follow up in 3-5 days JANET, MPH, RD
--- NOTE | 2022-07-20 09:35 | NUR ---
Dietitian Recommendations * Continue Vital AF 1.2 @ 50 mL/hr, Prosource BID, Ponce BID, Free water flush 50mL Q4H via OGT Provides (w/ prop, prosource, ponce): 1902 kcal, 125 g PRO Meets: 104% kcal, 93% of upper est PRO * Continue Ponce BID * Consider wound supplements: MVI, 250 mg VIT C; 220mg ZnSO4 x 14 days for wound healing * Consider bowel regimen * If pt is extubated, please contact RD to re-assess nutritional needs GS, MPH, RD Please refer to Nutrition F/U for further details. Thanks!
--- NOTE | 2022-07-20 10:15 | NUR ---
NARES POSITIVE FOR MRSA, PAGED
[2022-07-20] MEDS: NYSTATIN 15 GM TOPICAL POWDER TP SCH ×2 (10:24→20:41)
[2022-07-20] MEDS: LANOLIN ALCOHOL/MO/W.PET/CERES 57 GM CREAM..G. TP SCH ×2 (10:24→20:41)
[2022-07-20] MEDS: BALSAM PERU/CASTOR OIL 56.7 GM OINT...G. TP SCH (10:25)
--- NOTE | 2022-07-20 12:21 | NUR ---
SPOKE WITH CHRISTINA REQUESTING ORDERS FROM DR. MURILLO.
[2022-07-20] MEDS: FLUCONAZOLE 200 mg/ NS 100 ML IV SCH (14:30)
--- NOTE | 2022-07-20 17:53 | NUR ---
rt notes [address] nava and placed on 4l nc. sat 99% will monitor. Addendum: 07/20/22 at 1756 by Natalie Faria RT Amended: Links added.
--- NOTE | 2022-07-20 20:15 | NUR ---
RECEIVED PATIENT IN BED PLAYING HIS CELL PHONE , A/O X 3 , ON O2 4 LITER VIA N/C WITH O2 SAT 100%. NO DISTRESS , NO C/O PAIN AT THIS TIME, ON ICU MONITOR WITH RATE OF 98. LOVING CATH IN PLACE AND DRAIN TO GRAVITY. WILL CONTINUE TO MONITOR.
[2022-07-20] MEDS: ACETAMINOPHEN 500 MG TABLET PO PRN (20:41)
[2022-07-21] VITALS (12 sets, daily range): BP systolic 95–139
--- NOTE | 2022-07-21 | NUR ---
RT PUT PATIENT ON CPAP , PATIENT TOLERATE WELL AT THIS TIME.
[2022-07-21] MEDS: PIPERACILLIN/TAZO 3.375/DEX-IS 50 ML IV SCH ×5 (00:29→23:47)
[2022-07-21] MEDS: IPRATROPIUM/ALBUTEROL SULFATE 3 ML AMPUL.NEB (DUONEB) INH SCH ×4 (01:00→20:37)
--- NOTE | 2022-07-21 04:30 | NUR ---
CHG BATH GIVEN, ORAL CARE AND PERINEAL CARE GIVEN, CHANGED GOWN AND LINEN, BM X1 WITH MODERATE AMOUNT STOOL.
[2022-07-21 05:33] LABS: BASOPHILS # (AUTO) 0.1 K/uL (0.0-0.2); BASOPHILS % (AUTO) 0.6 % (0.0-2.0); EOSINOPHILS # (AUTO) 0.4 K/uL (0.0-0.4); EOSINOPHILS % (AUTO) 3.4 % (0.0-4.0); HEMATOCRIT 30.3 % (36-54); HEMOGLOBIN 9.7 g/dL (14.0-18.0); LYMPHOCYTES # (AUTO) 1.4 K/uL (1.0-5.5); LYMPHOCYTES % (AUTO) 12.6 % (20.5-51.5); MEAN CORPUSCULAR HEMOGLOBIN 26 pg (27-31); MEAN CORPUSCULAR HGB CONC 32 % (32-36); MEAN CORPUSCULAR VOLUME 82 fL (79.0-98.0); MONOCYTES # (AUTO) 0.8 K/uL (0.0-1.0); MONOCYTES % (AUTO) 7.5 % (1.7-9.3); NEUTROPHILS # (AUTO) 8.3 K/uL (1.8-7.7); NEUTROPHILS % (AUTO) 75.9 % (40.0-70.0); PLATELET COUNT (AUTO) 565 K/uL (130-430); RED BLOOD CELL COUNT(AUTO) 3.69 MIL/uL (4.2-6.2); RED CELL DISTRIBUTION WIDTH 18.1 % (9.0-15.0); WHITE BLOOD COUNT (AUTO) 10.9 K/uL (4.8-10.8)
[2022-07-21 06:10] LABS: ALBUMIN 2.2 g/dL (3.4-4.8); CALCIUM 8.5 mg/dL (8.4-11.0); CREATININE 0.21 mg/dL (0.55-1.30); TOTAL BILIRUBIN 0.6 mg/dL (0.0-1.0)
--- NOTE | 2022-07-21 07:00 | NUR ---
Open notes: received report from the red leader RN. 52-year-old man, history of transverse myelitis who is bedbound/wheelchair. Recurrent UTI indwelling Cason catheter who was brought to the hospital due to possible UTI worsening respiratory status worsening confusion. PT extubated on 07-20-22. LIJ Triple Lumen, Cason catheter in place. Bilateral lower extremities edema with scaly cellulitis appearance. Family will be updated.
--- NOTE | 2022-07-21 08:00 | NUR ---
DR. MURILLO AT BEDSIDE, NEW ORDERS TO BE IMPLEMENTED. PT TO TRANSFER TO TELE UNIT.
[2022-07-21] MEDS: PANTOPRAZOLE SODIUM 40 MG/VIAL (PROTONIX) IVP SCH (08:54)
[2022-07-21] MEDS: acetaZOLAMIDE 250 MG TABLET (DIAMOX) PO SCH ×2 (08:54→21:21)
[2022-07-21] MEDS: BACLOFEN 10 MG TABLET PO SCH ×3 (08:55→21:21)
[2022-07-21] MEDS: APIXABAN 2.5 MG TABLET PO SCH ×2 (08:56→21:22)
--- NOTE | 2022-07-21 09:00 | NUR ---
FAMILY AT BEDSIDE. UPDATE GIVEN.
--- NOTE | 2022-07-21 09:15 | NUR ---
UNABLE TO INSERT IV, PT HARD STICK, WILL KEEP CENTRAL LINE.
[2022-07-21] MEDS: ACETAMINOPHEN 500 MG TABLET PO PRN ×2 (09:27→21:21)
[2022-07-21] MEDS: NYSTATIN 15 GM TOPICAL POWDER TP SCH ×3 (09:28→21:32)
[2022-07-21] MEDS: BALSAM PERU/CASTOR OIL 56.7 GM OINT...G. TP SCH (09:28)
[2022-07-21] MEDS: LANOLIN ALCOHOL/MO/W.PET/CERES 57 GM CREAM..G. TP SCH ×3 (09:28→21:32)
--- NOTE | 2022-07-21 10:30 | NUR ---
WOUND CLEANED, PICTURES TAKING.
--- NOTE | 2022-07-21 12:45 | NUR ---
ICU TRANSFER: RECEIVED REPORT FROM [facility] ICU NURSE.
--- NOTE | 2022-07-21 12:45 | NUR ---
PT TRANSFER TO TELE, REPORT GIVEN TO DILEEP PANIAGUA.
[2022-07-21] MEDS: NACL 0.9% 1,000 ML IV SCH ×2 (14:53→15:23)
[2022-07-21] MEDS: FLUCONAZOLE 200 mg/ NS 100 ML IV SCH (15:22)
--- NOTE | 2022-07-21 16:33 | NUR ---
SWALLOWING EVALUATION: PER SPEECH THERAPIST PATIENT OKAY FOR PUREED AND THIN LIQUIDS FOR NOW.
--- NOTE | 2022-07-21 17:09 | NUR ---
ST EVALUATION COMPLETED. ST TX NOT INDICATED. RECOMMEND PO DIET OF PUREE AND THIN LIQUID. 1:1 ASSISTANCE AND FULL ASPIRATION PRECAUTIONS
--- NOTE | 2022-07-21 18:38 | NUR ---
EVENING ROUNDS: PATIENT STARTED ON PUREED WITH THIN LIQUIDS.WELL TOLERATED. CALL LIGHT WITH IN REACH. BED LOCKED AT LOWEST POSITION. CONTINUE TO MONITOR.
--- NOTE | 2022-07-21 23:43 | NUR ---
RT NOTES. PLACED PT ON BIPAP PER PT'S REQUEST TO BE PLACED ON @2300. HAD TO CONVINCE PT TO USE OUR MACHINE WITH PT'S HOME MASK BECAUSE PT WANTED TO BE PLACED ON HIS MACHINE. AT HOME PT USES AVAPS. SET AVAPS MODE ON OUR MACHINE SO PT IS COMFORTABLE. PT TOLERATING BEENA. NO RESP. DISTRESS NOTED. WILL CONTINUE TO MONITOR. RN NOTIFIED.
[2022-07-22] VITALS (7 sets, daily range): BP systolic 105–123
[2022-07-22] MEDS: IPRATROPIUM/ALBUTEROL SULFATE 3 ML AMPUL.NEB (DUONEB) INH SCH ×4 (01:16→19:42)
[2022-07-22] MEDS: PIPERACILLIN/TAZO 3.375/DEX-IS 50 ML IV SCH ×4 (06:17→23:38)
[2022-07-22 06:58] LABS: BASOPHILS # (AUTO) 0.1 K/uL (0.0-0.2); BASOPHILS % (AUTO) 0.6 % (0.0-2.0); EOSINOPHILS # (AUTO) 0.3 K/uL (0.0-0.4); EOSINOPHILS % (AUTO) 3.2 % (0.0-4.0); HEMATOCRIT 33.5 % (36-54); HEMOGLOBIN 10.5 g/dL (14.0-18.0); LYMPHOCYTES # (AUTO) 1.5 K/uL (1.0-5.5); LYMPHOCYTES % (AUTO) 17.1 % (20.5-51.5); MEAN CORPUSCULAR HEMOGLOBIN 26 pg (27-31); MEAN CORPUSCULAR HGB CONC 31 % (32-36); MEAN CORPUSCULAR VOLUME 82 fL (79.0-98.0); MONOCYTES # (AUTO) 0.7 K/uL (0.0-1.0); MONOCYTES % (AUTO) 8.6 % (1.7-9.3); NEUTROPHILS % (AUTO) 70.5 % (40.0-70.0); PLATELET COUNT (AUTO) 616 K/uL (130-430); RED BLOOD CELL COUNT(AUTO) 4.07 MIL/uL (4.2-6.2); WHITE BLOOD COUNT (AUTO) 8.5 K/uL (4.8-10.8)
[2022-07-22 07:11] LABS: CREATININE 0.27 mg/dL (0.55-1.30)
[2022-07-22] MEDS: PANTOPRAZOLE SODIUM 40 MG/VIAL (PROTONIX) IVP SCH (09:01)
[2022-07-22] MEDS: BACLOFEN 10 MG TABLET PO SCH ×3 (09:02→22:37)
[2022-07-22] MEDS: ACETAMINOPHEN 500 MG TABLET PO PRN ×3 (09:02→22:37)
[2022-07-22] MEDS: acetaZOLAMIDE 250 MG TABLET (DIAMOX) PO SCH ×2 (09:02→22:36)
[2022-07-22] MEDS: APIXABAN 2.5 MG TABLET PO SCH ×2 (09:03→22:39)
[2022-07-22] MEDS: LANOLIN ALCOHOL/MO/W.PET/CERES 57 GM CREAM..G. TP SCH ×2 (09:04→22:38)
[2022-07-22] MEDS: BALSAM PERU/CASTOR OIL 56.7 GM OINT...G. TP SCH (09:05)
[2022-07-22] MEDS: NYSTATIN 15 GM TOPICAL POWDER TP SCH ×2 (09:05→21:00)
[2022-07-22] MEDS: NACL 0.9% 1,000 ML IV SCH (11:23)
[2022-07-22] MEDS: FLUCONAZOLE 200 mg/ NS 100 ML IV SCH (14:35)
--- NOTE | 2022-07-22 20:22 | NUR ---
LAB called and inquired about f/u for the MRSA positive result reported earlier today. Dr. Joan Zavaleta was notified and ordered Bactroban BID to nares.
[2022-07-22] MEDS ORDERED: MUPIROCIN 1 GM OIN.PF.APP NS SCH (21:00)
[2022-07-22] MEDS: MUPIROCIN 2% TOPICAL OINTMENT 22 GM TP SCH (22:37)
--- NOTE | 2022-07-23 01:20 | NUR ---
RT NOTES. PLACED PT ON BIPAP @2300 PT REQUESTED. PT TOLERATING WELL. NO RESP. DISTRESS NOTED. WILL CONTINUE TO MONITOR.
[2022-07-23] MEDS: IPRATROPIUM/ALBUTEROL SULFATE 3 ML AMPUL.NEB (DUONEB) INH SCH ×4 (01:22→19:40)
[2022-07-23 06:35] LABS: BASOPHILS # (AUTO) 0.1 K/uL (0.0-0.2); BASOPHILS % (AUTO) 0.7 % (0.0-2.0); EOSINOPHILS # (AUTO) 0.3 K/uL (0.0-0.4); EOSINOPHILS % (AUTO) 4.1 % (0.0-4.0); HEMATOCRIT 36.4 % (36-54); HEMOGLOBIN 11.2 g/dL (14.0-18.0); LYMPHOCYTES # (AUTO) 1.5 K/uL (1.0-5.5); LYMPHOCYTES % (AUTO) 18.3 % (20.5-51.5); MEAN CORPUSCULAR HEMOGLOBIN 26 pg (27-31); MEAN CORPUSCULAR HGB CONC 31 % (32-36); MEAN CORPUSCULAR VOLUME 84 fL (79.0-98.0); MONOCYTES # (AUTO) 0.7 K/uL (0.0-1.0); MONOCYTES % (AUTO) 8.3 % (1.7-9.3); NEUTROPHILS # (AUTO) 5.6 K/uL (1.8-7.7); NEUTROPHILS % (AUTO) 68.6 % (40.0-70.0); PLATELET COUNT (AUTO) 640 K/uL (130-430); RED BLOOD CELL COUNT(AUTO) 4.33 MIL/uL (4.2-6.2); RED CELL DISTRIBUTION WIDTH 18.5 % (9.0-15.0); WHITE BLOOD COUNT (AUTO) 8.1 K/uL (4.8-10.8)
[2022-07-23] MEDS: PIPERACILLIN/TAZO 3.375/DEX-IS 50 ML IV SCH ×4 (06:45→23:25)
[2022-07-23 06:49] LABS: CALCIUM 9.2 mg/dL (8.4-11.0); CREATININE 0.37 mg/dL (0.55-1.30)
[2022-07-23] MEDS: NACL 0.9% 1,000 ML IV SCH (06:51)
[2022-07-23 08:20] VITALS: BP_SYST 112
--- NOTE | 2022-07-23 08:20 | NUR ---
Patient stable; resting comfortably in bed with no distress noted at this time.
[2022-07-23] MEDS: acetaZOLAMIDE 250 MG TABLET (DIAMOX) PO SCH ×2 (10:06→21:31)
[2022-07-23] MEDS: BACLOFEN 10 MG TABLET PO SCH ×3 (10:06→21:31)
[2022-07-23] MEDS: ACETAMINOPHEN 500 MG TABLET PO PRN ×3 (10:06→23:23)
[2022-07-23] MEDS: PANTOPRAZOLE SODIUM 40 MG/VIAL (PROTONIX) IVP SCH (10:06)
[2022-07-23] MEDS: APIXABAN 2.5 MG TABLET PO SCH ×2 (10:08→21:32)
[2022-07-23] MEDS: NYSTATIN 15 GM TOPICAL POWDER TP SCH ×2 (10:10→21:35)
[2022-07-23] MEDS: LANOLIN ALCOHOL/MO/W.PET/CERES 57 GM CREAM..G. TP SCH ×2 (10:10→21:34)
[2022-07-23] MEDS: MUPIROCIN 2% TOPICAL OINTMENT 22 GM TP SCH ×2 (10:10→21:34)
--- NOTE | 2022-07-23 10:10 | NUR ---
Patient cleaned and repositioned. Scheduled medications given per order. Patient requested tylenol for back pain: medicated. Stable at this time.
[2022-07-23] MEDS: BALSAM PERU/CASTOR OIL 56.7 GM OINT...G. TP SCH (10:11)
--- NOTE | 2022-07-23 12:10 | NUR ---
Scheduled IV abx given per order. Patient stable; resting comfortably in bed with no distress noted.
[2022-07-23 12:24] VITALS: BP_SYST 111
[2022-07-23] MEDS: FLUCONAZOLE 200 mg/ NS 100 ML IV SCH (13:15)
--- NOTE | 2022-07-23 13:15 | NUR ---
Scheduled IV abx given per order. Patient stable with Michael at bedside. Addendum: 07/23/22 at 1320 by Jaimie Gamez RN Correction: SISTER
--- NOTE | 2022-07-23 14:46 | NUR ---
Patient resting in bed with KARINA Restrepo and sister Rodriguez at bedside. Scheduled po medication given per order. Patient stable at this time.
[2022-07-23 16:00] VITALS: BP_SYST 113
--- NOTE | 2022-07-23 16:59 | NUR ---
Patient medicated for 6/10 back pain. Patient resting in bed with sister at bedside. Stable.
--- NOTE | 2022-07-23 18:57 | NUR ---
Scheduled IV abx given per order. Patient resting comfortably in bed with no distress noted. Patient stable throughout shift.
--- NOTE | 2022-07-23 21:00 | NUR ---
Mr Hammer has been assessed as indicated. He denies pain. The prajapati is draining adequate clear yellow urine. He has no s/s of distress or discomfort at this time. All ordered ointments and powder have been applied. He states that he had transeverse myelitis at the age of 10. He also states that he had scoliosis and had spinal surgery with rods placed in 2018. Prior to recent hospitalizations he was using a platform walker to ambulate. He states that he had cellulitis in 04/2021. He has experienced resp fail in 07/2019 and 10/2019. He states that he stopped passing urine in 05/2021. He states that he has not been able to get OOB with PT because the special bed that he has for wound protection does not get low enough to the ground for him to safely exit. He is resting quietly at this time
--- NOTE | 2022-07-23 21:16 | NUR ---
Ponce and ProSource have been refused by Mr Hammer
[2022-07-23] MEDS ORDERED: HEPARIN SODIUM,PORCINE 5,000 UNITS/ML VIAL SUBCUT ONE ×2 (21:45)
[2022-07-24] VITALS: BP_SYST 133
[2022-07-24] MEDS: IPRATROPIUM/ALBUTEROL SULFATE 3 ML AMPUL.NEB (DUONEB) INH SCH ×4 (01:00→19:41)
--- NOTE | 2022-07-24 01:25 | NUR ---
Handoff given to Shmuel
--- NOTE | 2022-07-24 01:52 | NUR ---
Recieved pt from PM nurse. Pt is aox4, bed bound. lungs are diminished at bases, currently on bipap machine for the rest of the eveing. Pt articulates need. VSS, will contiue to moitor pt. Bed locked at the lowest position, with rudolph light at reach.
[2022-07-24] MEDS: NACL 0.9% 1,000 ML IV SCH ×2 (02:53→21:58)
--- NOTE | 2022-07-24 05:30 | NUR ---
LALM needs to be replaced. Pt bed needs to be able to go down so that patient can be evaluated by PT
--- NOTE | 2022-07-24 07:50 | NUR ---
Initial Received patient awake in bed, AAOx4 on Bipap. Respiration even and unlabored, no signs of distress. Left IJ x3 lumens patent Cason catheter draining clear yellow urine. Maintain safety precaution, bed in low position , and call light w/in reached
--- NOTE | 2022-07-24 08:12 | NUR ---
rt notes 0812 Offloaded pt from bipap to 2LNC, pt ready for breakfast. pt saturating 97%. no distress noted.
--- NOTE | 2022-07-24 08:15 | NUR ---
Bipap removed by RT
[2022-07-24] MEDS: APIXABAN 2.5 MG TABLET PO SCH ×2 (08:24→21:56)
[2022-07-24] MEDS: PANTOPRAZOLE SODIUM 40 MG/VIAL (PROTONIX) IVP SCH (08:27)
[2022-07-24] MEDS: BACLOFEN 10 MG TABLET PO SCH ×3 (08:27→21:54)
[2022-07-24] MEDS: acetaZOLAMIDE 250 MG TABLET (DIAMOX) PO SCH ×2 (08:27→21:55)
[2022-07-24 08:37] VITALS: BP_SYST 135
[2022-07-24] MEDS: ACETAMINOPHEN 500 MG TABLET PO PRN ×3 (08:41→22:47)
[2022-07-24] MEDS: BALSAM PERU/CASTOR OIL 56.7 GM OINT...G. TP SCH (09:00)
[2022-07-24] MEDS: NYSTATIN 15 GM TOPICAL POWDER TP SCH ×2 (09:00→21:59)
[2022-07-24] MEDS: MUPIROCIN 2% TOPICAL OINTMENT 22 GM TP SCH ×2 (09:00→22:00)
[2022-07-24] MEDS: LANOLIN ALCOHOL/MO/W.PET/CERES 57 GM CREAM..G. TP SCH ×2 (09:00→21:59)
[2022-07-24 12:27] VITALS: BP_SYST 124
[2022-07-24] MEDS: FLUCONAZOLE 200 mg/ NS 100 ML IV SCH (14:06)
[2022-07-24 16:07] VITALS: BP_SYST 128
--- NOTE | 2022-07-24 18:51 | NUR ---
Closing Received patient awake in bed,AAOx4 no change in condition. Respiration even and unlabored, no signs of distress. Left IJ intact. Wound care dressing done applied all ointment and powder. Medicated and reposition throughout my shift. Maintain safety precaution, bed in low position , and call light w/in reached. will endorse
[2022-07-24 20:37] VITALS: BP_SYST 118
[2022-07-25] VITALS (8 sets, daily range): BP systolic 111–133
--- NOTE | 2022-07-25 01:08 | NUR ---
pt currently resting bed, medicated for pain x 1 with Tylenol for back pain. had one time bowel movement. presently resting in bed bipap on, no respiratory distress noted
[2022-07-25] MEDS: IPRATROPIUM/ALBUTEROL SULFATE 3 ML AMPUL.NEB (DUONEB) INH SCH ×4 (01:50→22:45)
--- NOTE | 2022-07-25 07:12 | NUR ---
rt notes 0712 pt offloaded from bipap. placed pt on 2LNC. pt saturating 93%. no distress noted. pt ready for breakfast.
--- NOTE | 2022-07-25 07:45 | NUR ---
Initial Received patient awake in bed, AAOx4. Respiration even and unlabored, oxygen saturation 98 on 2L nasal canula, no signs of distress. Left IJ x3 lumens patent, Cason catheter to gravity draining clear yellow urine . Maintain safety precaution, bed in low position , and call light w/in reached.
[2022-07-25] MEDS: PANTOPRAZOLE SODIUM 40 MG/VIAL (PROTONIX) IVP SCH (08:55)
[2022-07-25] MEDS: acetaZOLAMIDE 250 MG TABLET (DIAMOX) PO SCH ×2 (08:55→20:59)
[2022-07-25] MEDS: BACLOFEN 10 MG TABLET PO SCH ×3 (08:55→20:59)
[2022-07-25] MEDS: APIXABAN 2.5 MG TABLET PO SCH ×2 (08:56→21:00)
[2022-07-25] MEDS: ACETAMINOPHEN 500 MG TABLET PO PRN ×3 (08:59→21:10)
[2022-07-25] MEDS: BALSAM PERU/CASTOR OIL 56.7 GM OINT...G. TP SCH (09:00)
[2022-07-25] MEDS: NYSTATIN 15 GM TOPICAL POWDER TP SCH ×2 (09:00→21:01)
[2022-07-25] MEDS: LANOLIN ALCOHOL/MO/W.PET/CERES 57 GM CREAM..G. TP SCH ×2 (09:00→21:00)
[2022-07-25] MEDS: MUPIROCIN 2% TOPICAL OINTMENT 22 GM TP SCH ×2 (09:00→21:00)
--- NOTE | 2022-07-25 12:00 | NUR ---
Patient requesting for bed change, will endorse
[2022-07-25] MEDS: FLUCONAZOLE 200 mg/ NS 100 ML IV SCH (13:16)
--- NOTE | 2022-07-25 14:50 | NUR ---
Nutrition F/U RD reviewed pts current EMR including diet hx, physician notes, nursing notes, pertinent labs/meds/procedures, care trends and care activity. Admitting Diagnosis Complicated UTI Reviewed Pertinent Medical/Surgical Hx Medical Record Pt Medical History Comment: per EMR: Patient has limited lung capacity patient also is bedridden he ambulates minimally with walker mostly in a wheelchair has recent past vertebral surgery done at [facility] incapacitated since patient is also incontinent to urine and has a Cason catheter 07/12: got intubated Subjective Information: RD met w/ pt at bedside this morning. Pt attested to OK appetite, no N/V/C/D. Per EMR review, pt was extubated 07/20 and was seen [address] ST for swallow eval 07/21, at which time, ST rec for puree and thin liquids along w/ 1:1 assistance and aspiration precautions. Since then, pt was advanced to regular diet, and seems to be tolerating texture well. RD spoke w/ primary RN who stated that pt has not been eating much, but would encourage. RD alerted RN of pt's Ponce BID order as well -- she stated she would help pt mix into liquids. Per EMR review, Ponce documentation stopped 07/20, though Ponce BID has been ordered since 07/13. FNS dept also had a period of shortage of Ponce product the past few days per diet technician registered today. New shipment arrived today, so please provide Ponce BID as ordered. Current Diet Order/Nutrition Support: Regular x2 days & Ponce BID x12 days % PO intake: Fair -- 52% average x8 meal records Last BM: x2 07/24 NEW Estimated Energy Expenditure (kcals/day) 8632-6261 (30-35 kcal/kg Adj IBW d/t obesity, wounds) Estimated Protein Required (g/day) 101-134 (1.5-2g/kg ABW d/t obesity, wounds) NEW Estimated Fluid Required (l/day) 2-2.3 (1ml/kcal/day for adult maintenance) Problem/Etiology/Signs/Symptoms * Suboptimal EN support R/T underfeeding AEB current TF prescription meets 60% of estimated caloric needs and 53% of lower end of estimated protein needs (Resolved) * Increased energy and protein utilization r/t metabolic demands AEB estimated nutritional needs for wound healing. *Ongoing Dietitian Recommendations * Regular diet, Ensure BID, Ponce BID (supplements yield 880 kcal/day, 45 gm protein/day) * Continue liberalized diet at this time d/t suboptimal PO intakes * Encourage good PO intakes Follow up: Moderate Risk: F/U in 3-5 days
--- NOTE | 2022-07-25 14:58 | NUR ---
Dietitian Recommendations * Regular diet, Ensure BID, Ponce BID (supplements yield 880 kcal/day, 45 gm protein/day) * Continue liberalized diet at this time d/t suboptimal PO intakes * Encourage good PO intakes LP, MS, RD Please refer to Nutrition F/U for details.
[2022-07-25] MEDS: NACL 0.9% 1,000 ML IV SCH (17:49)
--- NOTE | 2022-07-25 19:15 | NUR ---
change of shift.pt.presents isolation status;contact;mrsa nares.pt.rest upon large bed;pt presents paraplegia 2/t scoliosis. pt.presents o2 therapy via nasal cannulae rate;2l/min:o2-sat%=98%pt.presents in access lt.inj intact.pt.presents prajapati cath intact;patent.pt.presents wounds;rash multiple.call light/telephone w/in access of the pt.
--- NOTE | 2022-07-25 19:35 | NUR ---
Closing Received patient awake, no change in condition. Respiration even and unlabored, no signs of distress. Left IJ intact. Wound care dressing done applied all ointment and powder. Maintain safety precaution, bed in low position , and call light w/in reached. will endorse
--- NOTE | 2022-07-25 20:00 | NUR ---
pt.assessed.v/s assessed values wnl.02-sat=98%.no c/o pain,nausea.no requests [email or web address],prajapati cath intact. pt,apprised snacks/beverages are available w/in the shift.no requests [email or web address].rest upon bed;pt.repositioned per bed.call light/telephone placed w/in access of the pt.
--- NOTE | 2022-07-25 21:00 | NUR ---
2100p medications administered.pt.capable to ingest the po medications w/out difficulty.no c/o pain,nausea. pt.requested water provided per eddie.
--- NOTE | 2022-07-25 22:00 | NUR ---
pt.assessed.pt.requested to be cleaned.pt.cleaned bed repositioned pt.no c/o pain,nausea.02-sat%=98%. lt.inj/prajapati cath intact.call light/telephone w/in access of the pt.
--- NOTE | 2022-07-26 | NUR ---
pt.assessed.v/s assessed values wnl.no c/o pain,nausea.no requests [email or web address] hour.lt.inj intact prajapati cath intact. pt.reposition per bed.o2-sat%=98%rudolph light/telephone w/in access of the pt.
[2022-07-26 00:19] VITALS: BP_SYST 153
[2022-07-26] MEDS: IPRATROPIUM/ALBUTEROL SULFATE 3 ML AMPUL.NEB (DUONEB) INH SCH ×4 (00:24→19:37)
--- NOTE | 2022-07-26 02:00 | NUR ---
pt.assessed.pt.requested bedpan.pt.assisted.no c/o aaron tyler.iv access/prajapati cath intact;patent.bed repositioned pt. call light/telephone placed w/in access of the pt. Addendum: 07/26/22 at 0256 by Yunior Davenport RN o2-sat%=98%.
--- NOTE | 2022-07-26 04:00 | NUR ---
pt.assessed.pt.quiescent.per flacc pain mgx pt.absent facial grimaces/body posturing.pt.assessed for cleanliness.bed repositioned pt.02-sat%=98%i attempted to weigh pt.bed scale non-functional.call light/telephone placed w/in access of the pt.
[2022-07-26] MEDS: NACL 0.9% 1,000 ML IV SCH (05:31)
--- NOTE | 2022-07-26 06:14 | NUR ---
pt.assessed.pt.quiescent.bi-pap in progress.per flacc pain mgx pt.absent facial grimaces/body posturing.pt.assessed for cleanliness bed repositioned pt.call light/telephone w/in access of the pt.
[2022-07-26 08:00] VITALS: BP_SYST 148
--- NOTE | 2022-07-26 08:00 | NUR ---
OPENING NOTES PATIENT IS AOX4. ON 2 LO O2 VIA NASAL CANNULA. NO SOB NOTED. BREATHING IS EVEN AND NONLABORED. VITAL SIGNS OBTAINED, DOCUMENTED. PATIENT DENIES SEVERE PAIN AT THIS TIME. IVF RUNNING. IV PATENT PATIENT IS EATING BREAKFAST. HOB ELEVATED. BED IS LOCKED, ALARM ON, AND AT LOWEST POSITION. CALL LIGHT WITHIN REACH.
[2022-07-26] MEDS: acetaZOLAMIDE 250 MG TABLET (DIAMOX) PO SCH ×2 (09:31→21:49)
[2022-07-26] MEDS: MUPIROCIN 2% TOPICAL OINTMENT 22 GM TP SCH ×2 (09:31→21:26)
[2022-07-26] MEDS: BACLOFEN 10 MG TABLET PO SCH ×3 (09:31→21:23)
[2022-07-26] MEDS: BALSAM PERU/CASTOR OIL 56.7 GM OINT...G. TP SCH (09:32)
[2022-07-26] MEDS: LANOLIN ALCOHOL/MO/W.PET/CERES 57 GM CREAM..G. TP SCH ×2 (09:32→21:26)
[2022-07-26] MEDS: NYSTATIN 15 GM TOPICAL POWDER TP SCH ×2 (09:32→21:26)
[2022-07-26] MEDS: ACETAMINOPHEN 500 MG TABLET PO PRN ×3 (09:35→23:22)
[2022-07-26] MEDS: APIXABAN 2.5 MG TABLET PO SCH ×2 (09:36→21:23)
--- NOTE | 2022-07-26 09:53 | NUR ---
Bed mattress Educated patient on bed mattress and wound care. Patient states that he wants a new bed mattress. States that he feels uncomfortable with this particular mattress. Explained to patient and daughter, who is at bedside, the benefits this particular air/sand mattress would provide for his wound healing treatment. Patient educated on risks of changing mattress,such as wound not healing and/ or worsening due to not relieving pressure off buttocks and sacrum. Patient and daughter verbalized understanding. Both parties want to proceed forward with changing the mattress despite being educated on benefits for wound healing. Charge nurse notified and reported request to RN bar supervisor.
[2022-07-26] MEDS: PANTOPRAZOLE SODIUM 40 MG/VIAL (PROTONIX) IVP SCH (10:13)
[2022-07-26 11:41] VITALS: BP_SYST 129
--- NOTE | 2022-07-26 12:00 | NUR ---
NOTES PATIENT IS EATING BREAKFAST. NO SS OF DISTRESS NOTED. BREATHING IS EVEN AND NONLABORED, IV PATENT. SAFETY PRECAUTIONS IN PLACE AND CALL LIGHT WITHIN REACH. DAUGHTER AT BEDSIDE.
--- NOTE | 2022-07-26 15:00 | NUR ---
notes Dr. Zavaleta spoke to patient at bedside earlier. MD made aware of patient's request to change bed mattresses. MD spoke to patient about wound treatment and risks of changing mattress. Patient verbalized understanding, still wants to move forward with changing mattress to P500 air mattress instead of current mattress. MD aware that there has not been any urine output from Cason bag since 0900. Bladder scan was done, approximately 700-800 cc or urine in bladder. Per MD, to flush Cason if unable to, to change Cason bag.
--- NOTE | 2022-07-26 15:33 | NUR ---
Cason Unable to flush Cason. Patient stated felt a lot of pressure. New Cason inserted with sterile technique. Patient tolerated well. F/C is draining by gravity.
[2022-07-26 15:55] VITALS: BP_SYST 115
--- NOTE | 2022-07-26 17:29 | NUR ---
NOTES PATIENT IS RESTING IN BED. NO SS OF DISTRESS NOTED. NO SOB NOTED. PATIENT REQUEST PAIN MEDICATION FOR BACK. PAIN MEDICATION ADMINISTERED. AT BEDSIDE. SAFETY PRECAUTIONS IN PLACE AND CALL LIGHT WITHIN REACH.
--- NOTE | 2022-07-26 19:55 | NUR ---
CLOSING NOTES PATIENT IS EATING DINNER. NO SS OF DISTRESS NOTED. BREATHING IS EVEN AND NONLABORED,ON 2 L O2 VIA NC. PATIENT DENIES SEVERE PAIN AT THIS TIME. IV PATENT. PATIENT IS STABLE. ALL NEEDS MET. F/C DRAINING BY GRAVITY. SAFETY PRECAUTIONS IN PLACE AND CALL LIGHT WITHIN REACH. ENDORSED CARE TO ARCELIA VALADEZ.
[2022-07-26 20:00] VITALS: BP_SYST 111
[2022-07-26] MEDS: PIPERACILLIN/TAZO 3.375/DEX-IS 50 ML IV SCH ×2 (21:25→23:22)
[2022-07-26] MEDS: FLUCONAZOLE 100 mg/ NS 50 ML IV SCH (21:26)
--- NOTE | 2022-07-26 22:08 | NUR ---
Shift Summary: patient is AAOX4. vitals are stable. patient updated on plan of care for evening. patient states he understands. patient also informed to use call light if he needs any assistance from staff due to him being a high fall risk. patient states he understands. call light within reach, bed set to low, locked and alarm on.
[2022-07-27] VITALS: BP_SYST 105
[2022-07-27] MEDS: IPRATROPIUM/ALBUTEROL SULFATE 3 ML AMPUL.NEB (DUONEB) INH SCH ×4 (00:40→21:48)
[2022-07-27] MEDS: PIPERACILLIN/TAZO 3.375/DEX-IS 50 ML IV SCH (06:25)
[2022-07-27 08:00] VITALS: BP_SYST 109
[2022-07-27] MEDS: acetaZOLAMIDE 250 MG TABLET (DIAMOX) PO SCH ×2 (08:36→21:07)
[2022-07-27] MEDS: ACETAMINOPHEN 500 MG TABLET PO PRN ×3 (08:36→22:37)
[2022-07-27] MEDS: APIXABAN 2.5 MG TABLET PO SCH ×2 (08:37→20:29)
[2022-07-27] MEDS: PANTOPRAZOLE SODIUM 40 MG/VIAL (PROTONIX) IVP SCH (08:37)
[2022-07-27] MEDS: BACLOFEN 10 MG TABLET PO SCH ×3 (08:38→20:29)
[2022-07-27] MEDS: BALSAM PERU/CASTOR OIL 56.7 GM OINT...G. TP SCH (08:48)
[2022-07-27] MEDS: MUPIROCIN 2% TOPICAL OINTMENT 22 GM TP SCH ×2 (08:48→20:31)
[2022-07-27] MEDS: LANOLIN ALCOHOL/MO/W.PET/CERES 57 GM CREAM..G. TP SCH ×2 (08:48→20:31)
[2022-07-27] MEDS: NYSTATIN 15 GM TOPICAL POWDER TP SCH ×2 (08:49→20:31)
[2022-07-27 11:30] VITALS: BP_SYST 132
--- NOTE | 2022-07-27 12:20 | NUR ---
PHYSICAL THERAPY CO-SIGN The Physical Therapy Progress Notes documented by Polish Compounder have been reviewed. Reviewed/Co-Signed by: Titus Medina Documentation Done by:JLUIS DORAN Addendum: 07/27/22 at 1221 by Titus Medina PT Amended: Links added.
--- NOTE | 2022-07-27 12:20 | NUR ---
PHYSICAL THERAPY CO-SIGN The Physical Therapy Progress Notes documented by Ornamental Brick Installer have been reviewed. Reviewed/Co-Signed by: Titus Medina Documentation Done by:JLUIS DORAN Addendum: 07/27/22 at 1221 by Titus Medina PT Amended: Links added.
[2022-07-27 15:25] VITALS: BP_SYST 131
[2022-07-27 20:00] VITALS: BP_SYST 139
[2022-07-27] MEDS: FLUCONAZOLE 100 mg/ NS 50 ML IV SCH (20:30)
[2022-07-27] MEDS: NACL 0.9% 1,000 ML IV SCH (20:32)
[2022-07-28 00:38] VITALS: BP_SYST 146
[2022-07-28] MEDS: IPRATROPIUM/ALBUTEROL SULFATE 3 ML AMPUL.NEB (DUONEB) INH SCH ×2 (03:38→07:00)
[2022-07-28] MEDS: NACL 0.9% 1,000 ML IV SCH (05:55)
[2022-07-28 07:09] LABS: BASOPHILS # (AUTO) 0.1 K/uL (0.0-0.2); BASOPHILS % (AUTO) 0.6 % (0.0-2.0); EOSINOPHILS # (AUTO) 0.5 K/uL (0.0-0.4); EOSINOPHILS % (AUTO) 4.4 % (0.0-4.0); HEMATOCRIT 33.7 % (36-54); HEMOGLOBIN 10.4 g/dL (14.0-18.0); LYMPHOCYTES # (AUTO) 1.2 K/uL (1.0-5.5); MEAN CORPUSCULAR HEMOGLOBIN 26 pg (27-31); MEAN CORPUSCULAR HGB CONC 31 % (32-36); MEAN CORPUSCULAR VOLUME 83 fL (79.0-98.0); MONOCYTES # (AUTO) 0.6 K/uL (0.0-1.0); MONOCYTES % (AUTO) 5.4 % (1.7-9.3); NEUTROPHILS # (AUTO) 8.7 K/uL (1.8-7.7); NEUTROPHILS % (AUTO) 78.6 % (40.0-70.0); PLATELET COUNT (AUTO) 436 K/uL (130-430); RED BLOOD CELL COUNT(AUTO) 4.07 MIL/uL (4.2-6.2); RED CELL DISTRIBUTION WIDTH 18.5 % (9.0-15.0); WHITE BLOOD COUNT (AUTO) 11.1 K/uL (4.8-10.8)
[2022-07-28 07:27] LABS: CREATININE 0.37 mg/dL (0.55-1.30)
[2022-07-28 08:00] VITALS: BP_SYST 135
[2022-07-28] MEDS: LANOLIN ALCOHOL/MO/W.PET/CERES 57 GM CREAM..G. TP SCH ×2 (09:00→21:59)
[2022-07-28] MEDS: NYSTATIN 15 GM TOPICAL POWDER TP SCH ×2 (09:00→21:58)
[2022-07-28] MEDS: ACETAMINOPHEN 500 MG TABLET PO PRN ×3 (09:03→22:11)
[2022-07-28] MEDS: PANTOPRAZOLE SODIUM 40 MG/VIAL (PROTONIX) IVP SCH (09:03)
[2022-07-28] MEDS: acetaZOLAMIDE 250 MG TABLET (DIAMOX) PO SCH ×2 (09:03→22:06)
[2022-07-28] MEDS: APIXABAN 2.5 MG TABLET PO SCH ×2 (09:04→21:56)
[2022-07-28] MEDS: BACLOFEN 10 MG TABLET PO SCH ×3 (09:04→21:56)
[2022-07-28 11:35] VITALS: BP_SYST 138
[2022-07-28] MEDS: BALSAM PERU/CASTOR OIL 56.7 GM OINT...G. TP SCH (13:10)
[2022-07-28] MEDS: MUPIROCIN 2% TOPICAL OINTMENT 22 GM TP SCH ×2 (13:12→21:57)
[2022-07-28 16:55] VITALS: BP_SYST 126
--- NOTE | 2022-07-28 17:00 | NUR ---
RECEIVED CALL FROM HOME RESTORATION SERVICE CLEANER GREGORY,SHE SAYS PATIENT MAY GO TO [facility] IN [place] TOMORROW,TEL:[phone] AWAITING FOR BIPAP AVAILABLE IN SNF,TRANSPORTATION BY [facility] WILL CALL TEL:[phone],AUTHORIZATION # [id number] GREGORY [employer] DEAN NUMBERS :[phone]
--- NOTE | 2022-07-28 19:37 | NUR ---
pt is awake ands alert, able to carry conversation. remind him about fall precaution. pt understood.
[2022-07-28] MEDS ORDERED: IPRATROPIUM BROM 0.5 MG/2.5 ML VIAL.NEB (ATROVENT) INH ONE (19:41)
[2022-07-28] MEDS ORDERED: ALBUTEROL SULFATE 0.083% 2.5 MG/3 ML VIAL.NEB INH ONE (19:41)
[2022-07-28 20:00] VITALS: BP_SYST 126
--- NOTE | 2022-07-28 20:30 | NUR ---
pt asking for bedpan cause he feels that he needs to go. item was provided.
--- NOTE | 2022-07-28 20:55 | NUR ---
pt asking for some snack. nurse are providing to the patient.
[2022-07-28] MEDS: FLUCONAZOLE 100 mg/ NS 50 ML IV SCH (21:55)
[2022-07-29 00:42] VITALS: BP_SYST 140
[2022-07-29] MEDS: ALBUTEROL SULFATE 0.083% 2.5 MG/3 ML VIAL.NEB INH SCH ×3 (01:13→13:00)
[2022-07-29] MEDS: IPRATROPIUM BROM 0.5 MG/2.5 ML VIAL.NEB (ATROVENT) INH SCH ×3 (01:13→13:00)
[2022-07-29] MEDS: NACL 0.9% 1,000 ML IV SCH (03:54)
--- NOTE | 2022-07-29 05:31 | NUR ---
PT ONLY WANTS TO CHANGE HIS DRESSING ONCE A DAY. HE SAID IT IS FINE.
[2022-07-29 08:00] VITALS: BP_SYST 142
[2022-07-29] MEDS: PANTOPRAZOLE SODIUM 40 MG/VIAL (PROTONIX) IVP SCH (09:28)
[2022-07-29] MEDS: acetaZOLAMIDE 250 MG TABLET (DIAMOX) PO SCH (09:28)
[2022-07-29] MEDS: BACLOFEN 10 MG TABLET PO SCH ×2 (09:28→15:18)
[2022-07-29] MEDS: APIXABAN 2.5 MG TABLET PO SCH (09:29)
[2022-07-29] MEDS: ACETAMINOPHEN 500 MG TABLET PO PRN ×2 (09:31→15:18)
[2022-07-29] MEDS ORDERED: DIA250 PO (09:56)
[2022-07-29] MEDS ORDERED: BACL10TA PO (09:56)
[2022-07-29] MEDS ORDERED: NYST15PO2 TP (09:56)
[2022-07-29] MEDS ORDERED: BACTROBAN TP (09:56)
[2022-07-29] MEDS ORDERED: APIX2.5T PO (09:56)
[2022-07-29] MEDS: LANOLIN ALCOHOL/MO/W.PET/CERES 57 GM CREAM..G. TP SCH (10:35)
[2022-07-29] MEDS: NYSTATIN 15 GM TOPICAL POWDER TP SCH (10:35)
[2022-07-29] MEDS: BALSAM PERU/CASTOR OIL 56.7 GM OINT...G. TP SCH (10:36)
[2022-07-29] MEDS: MUPIROCIN 2% TOPICAL OINTMENT 22 GM TP SCH (10:37)
--- NOTE | 2022-07-29 11:17 | NUR ---
Report given to receiving nurse at [facility]. Patient will not be accepted to facility until he has a more recent bowel movement per receiving nurse. Will inform .
[2022-07-29 12:54] VITALS: BP_SYST 141
[2022-07-29 15:00] VITALS: BP_SYST 133
--- NOTE | 2022-07-29 15:57 | NUR ---
PHYSICAL THERAPY CO-SIGN The Physical Therapy Progress Notes documented by Lace Cutter have been reviewed. Reviewed/Co-Signed by: Lauro Burnett Documentation Done by:JLUIS DORAN Addendum: 07/29/22 at 1557 by Lauro Burnett PT Amended: Links added.
[2022-07-29 16:00] VITALS: BP_SYST 143
--- NOTE | 2022-07-29 16:32 | NUR ---
Right IJ triple lumen catheter removed without any complications at 1500, bleeding precautions maintained.Pressure dressing applied. [facility] Belongings packed and given to patient. Palient left in no apparent distress. See discharge summary. No complaints voiced at time of discharge.
== END 2022-07-29 16:30 | DRG 870 ==
LOC: SED 22:01 → STU 07-10 04:13 → SIC 07-12 17:07 → STU 07-21 13:15 → SMU 07-27 19:30
PROVIDERS: ADMIT Specialist; ATTEND Specialist
PROC: 5A09357 Assistance with Respiratory Ventilation, Less than 24 Consecutive Hours, Continuous Positive Airway Pressure (ICD-10-PCS; 2022-07-10)
PROC: 5A09357 Assistance with Respiratory Ventilation, Less than 24 Consecutive Hours, Continuous Positive Airway Pressure (ICD-10-PCS; 2022-07-11)
PROC: 5A1955Z Respiratory Ventilation, Greater than 96 Consecutive Hours (ICD-10-PCS; principal; 2022-07-12)
PROC: 0B9J8ZX Drainage of Left Lower Lung Lobe, Via Natural or Artificial Opening Endoscopic, Diagnostic (ICD-10-PCS; 2022-07-12)
PROC: 0B9C8ZX Drainage of Right Upper Lung Lobe, Via Natural or Artificial Opening Endoscopic, Diagnostic (ICD-10-PCS; 2022-07-12)
PROC: 0B9G8ZX Drainage of Left Upper Lung Lobe, Via Natural or Artificial Opening Endoscopic, Diagnostic (ICD-10-PCS; 2022-07-12)
PROC: 0B9D8ZX Drainage of Right Middle Lung Lobe, Via Natural or Artificial Opening Endoscopic, Diagnostic (ICD-10-PCS; 2022-07-12)
PROC: 0B9H8ZX Drainage of Lung Lingula, Via Natural or Artificial Opening Endoscopic, Diagnostic (ICD-10-PCS; 2022-07-12)
PROC: 02HV33Z Insertion of Infusion Device into Superior Vena Cava, Percutaneous Approach (ICD-10-PCS; 2022-07-12)
PROC: B548ZZA Ultrasonography of Superior Vena Cava, Guidance (ICD-10-PCS; 2022-07-12)
PROC: 5A09357 Assistance with Respiratory Ventilation, Less than 24 Consecutive Hours, Continuous Positive Airway Pressure (ICD-10-PCS; 2022-07-12)
PROC: 0BH17EZ Insertion of Endotracheal Airway into Trachea, Via Natural or Artificial Opening (ICD-10-PCS; 2022-07-12)
PROC: 5A09357 Assistance with Respiratory Ventilation, Less than 24 Consecutive Hours, Continuous Positive Airway Pressure (ICD-10-PCS; 2022-07-20)
PROC: 5A09357 Assistance with Respiratory Ventilation, Less than 24 Consecutive Hours, Continuous Positive Airway Pressure (ICD-10-PCS; 2022-07-21)
PROC: 5A09357 Assistance with Respiratory Ventilation, Less than 24 Consecutive Hours, Continuous Positive Airway Pressure (ICD-10-PCS; 2022-07-22)
PROC: 5A09357 Assistance with Respiratory Ventilation, Less than 24 Consecutive Hours, Continuous Positive Airway Pressure (ICD-10-PCS; 2022-07-23)
PROC: 5A09357 Assistance with Respiratory Ventilation, Less than 24 Consecutive Hours, Continuous Positive Airway Pressure (ICD-10-PCS; 2022-07-24)
PROC: 5A09357 Assistance with Respiratory Ventilation, Less than 24 Consecutive Hours, Continuous Positive Airway Pressure (ICD-10-PCS; 2022-07-25)
PROC: 5A09357 Assistance with Respiratory Ventilation, Less than 24 Consecutive Hours, Continuous Positive Airway Pressure (ICD-10-PCS; 2022-07-26)
PROC: 5A09357 Assistance with Respiratory Ventilation, Less than 24 Consecutive Hours, Continuous Positive Airway Pressure (ICD-10-PCS; 2022-07-27)
PROC: 5A09357 Assistance with Respiratory Ventilation, Less than 24 Consecutive Hours, Continuous Positive Airway Pressure (ICD-10-PCS; 2022-07-28)
PROC: 5A09357 Assistance with Respiratory Ventilation, Less than 24 Consecutive Hours, Continuous Positive Airway Pressure (ICD-10-PCS; 2022-07-29)
DX: A41.9 Sepsis, unspecified organism (principal); J69.0 Pneumonitis due to inhalation of food and vomit; J96.21 Acute and chronic respiratory failure with hypoxia; J96.22 Acute and chronic respiratory failure with hypercapnia; G93.41 Metabolic encephalopathy; G82.50 Quadriplegia, unspecified; L03.116 Cellulitis of left lower limb; Z99.11 Dependence on respirator [ventilator] status; E66.2 Morbid (severe) obesity with alveolar hypoventilation; G37.3 Acute transverse myelitis in demyelinating disease of central nervous system; N39.0 Urinary tract infection, site not specified; L03.115 Cellulitis of right lower limb; E88.09 Other disorders of plasma-protein metabolism, not elsewhere classified; L98.499 Non-pressure chronic ulcer of skin of other sites with unspecified severity; E83.51 Hypocalcemia; D64.9 Anemia, unspecified; I87.2 Venous insufficiency (chronic) (peripheral); B96.5 Pseudomonas (aeruginosa) (mallei) (pseudomallei) as the cause of diseases classified elsewhere; B37.2 Candidiasis of skin and nail; Z20.822 Contact with and (suspected) exposure to COVID-19; I11.0 Hypertensive heart disease with heart failure; I50.9 Heart failure, unspecified; Z88.6 Allergy status to analgesic agent; Z88.1 Allergy status to other antibiotic agents; Z79.899 Other long term (current) drug therapy; Z88.7 Allergy status to serum and vaccine; Z87.440 Personal history of urinary (tract) infections; Z79.01 Long term (current) use of anticoagulants; Z74.01 Bed confinement status; Z99.3 Dependence on wheelchair; Z68.39 Body mass index [BMI] 39.0-39.9, adult
CPT/HCPCS: 36415; 36600; 70450-TC; 71045; 74018; 76376; 80048; 80053; 81000; 82803-TC; 83605; 83735; 83880; 84100; 85025; 85651-TC; 86140; 87040; 87070-TC; 87081; 87086; 87186-TC; 87205-TC; 92610-GN; 93005; 94002; 94003; 94640; 94660; 94760; 96361; 96365; 97110-GP; 97112-GP; 97116-GP; 97530-GP; 99285; C9113; G0378; J0696; J1450; J1885; J1940; J2020; J2543; J2704; J3010; J3490; J7613

== ENCOUNTER 2024-04-02 10:05 | Day surgery (SDC) | payer BC, OTHER ==
[~2024-04-02] VITALS: Ht 170.2 cm; Wt 102.1 kg
[~2024-04-02 10:05] MED LIST: ACET250T28 PO; APIX2.5T PO; BACL10TA PO; BACTROBAN TP; NYST15PO2 TP
[2024-04-02] MEDS ORDERED: DESFLURANE 15 MIN GAS INH ONE (12:20)
[2024-04-02] MEDS ORDERED: ONDANSETRON HCL 4 MG/2 ML VIAL ONE (12:20)
[2024-04-02] MEDS ORDERED: fentaNYL CITRATE/PF 100 MCG/2 ML AMP ONE (12:20)
[2024-04-02] MEDS ORDERED: KETOROLAC TROMETHAMINE 30 MG VIAL ONE (12:20)
[2024-04-02] MEDS ORDERED: DEXAMETHASONE SOD PHOSPHATE 4 MG/ML VIAL ONE (12:20)
[2024-04-02] MEDS ORDERED: PROPOFOL 200MG/ 20ML VIAL (DIPRIVAN) IV ONE (12:20)
[2024-04-02] MEDS ORDERED: NS IRRIG SOLN 1000 ML IR ONE (12:20)
[2024-04-02] MEDS ORDERED: MIDAZOLAM HCL 2 MG/2 ML VIAL (VERSED) ONE (12:20)
[2024-04-02] MEDS ORDERED: ROCURONIUM BROMIDE 10 MG/ML (ZEMURON) ONE (12:20)
[2024-04-02] MEDS ORDERED: LR 1,000 ML IV.SOLN IV ONE (12:20)
[2024-04-02] MEDS ORDERED: WATER FOR IRRIGATION,STERILE 1,000 ML IRRIG.SOLN IR ONE (12:20)
[2024-04-02] MEDS ORDERED: SUGAMMADEX SODIUM 200 MG/2 ML VIAL IV ONE (12:20)
[2024-04-02] MEDS ORDERED: ceFAZolin SODIUM 3 GM in D5W 100 ML IV ONE (12:30)
[2024-04-02] MEDS ORDERED: ACETAMINOPHEN I.V. 1000 MG 100 ML IV ONE (12:55)
[2024-04-02] MEDS ORDERED: MEPERIDINE HCL/PF 25 MG/ML DISP.SYRIN IVP PRN (13:15)
[2024-04-02] MEDS ORDERED: METOCLOPRAMIDE HCL 10 MG/2 ML VIAL IVP PRN (13:15)
[2024-04-02] MEDS ORDERED: LR 1,000 ML IV SCH (13:15)
[2024-04-02] MEDS ORDERED: HYDROmorphone 1 MG/ML INJ. CARTRIDGE IVP PRN ×2 (13:15)
[2024-04-02] MEDS ORDERED: hydrALAZINE HCL 20 MG/ML VIAL IVP PRN (13:15)
[2024-04-02] MEDS ORDERED: LABETALOL 100 MG/ 20ML VIAL IVP PRN (13:15)
[2024-04-02 13:17] VITALS: O2SAT 97
[2024-04-02] MEDS ORDERED: CEFEPIME 1 GM in D5W 50 ML IV ONE (13:30)
[2024-04-02] MEDS ORDERED: METH1TAB35 PO (14:00)
[2024-04-02] MEDS ORDERED: BACL20TA PO (14:00)
[2024-04-02] MEDS ORDERED: FURO-150 PO (14:00)
[2024-04-02] MEDS ORDERED: LABETALOL 100 MG/ 20ML VIAL ONE (14:43)
[2024-04-02 16:27] VITALS: BP_SYST 152; PULSE 95; RESP 20; TEMP 97.3
== END 2024-04-02 16:55 | disposition home or self-care (01) ==
LOC: SDS 10:05 → SMU 10:12 → SDS 16:55
PROVIDERS: ATTEND Urology
DX: N20.0 Calculus of kidney (principal); J44.9 Chronic obstructive pulmonary disease, unspecified; G47.33 Obstructive sleep apnea (adult) (pediatric); E66.01 Morbid (severe) obesity due to excess calories; G62.9 Polyneuropathy, unspecified; Z88.5 Allergy status to narcotic agent; Z96.642 Presence of left artificial hip joint; Z88.7 Allergy status to serum and vaccine; Z99.89 Dependence on other enabling machines and devices; Z79.899 Other long term (current) drug therapy
CPT/HCPCS: 52356; 87081; 88300; J3490; J0690; J1100; J1885; J2250; J2405; J2704; J3010; J7060 ×2; J7120; C2625; J0131; 76000; J0692